=== PATIENT | male | born 1960 | race African-American/Black ===

== ENCOUNTER 2020-06-13 02:21 | Emergency (ER) | payer MEDICARE, MEDICAID, SELFPAY ==
--- NOTE | 2020-06-13 02:24 | ECG_ITS ---
Test Reason : CHEST PAIN Blood Pressure : / mmHG Vent. Rate : 068 BPM Atrial Rate : 068 BPM P-R Int : 168 ms QRS Dur : 096 ms QT Int : 408 ms P-R-T Axes : 074 060 056 degrees QTc Int : 433 ms Normal sinus rhythm Normal ECG Compare to previous EKG 22-Sep-2019 No significant changes seen Referred By: aCty Zarate Electronically Signed By:PRAVEENA HENDRICKS MD
[2020-06-13 02:31] VITALS: BP 155/96; BP 170/100; PULSE 78; PULSE 88; RESP 16; TEMP 36.8; O2SAT 97; O2SAT 98; BMI 24.1
--- NOTE | 2020-06-13 02:56 | XR_ITS ---
EXAMINATION: XR CHEST CLINICAL INFORMATION: Chest pain COMPARISON: 12/28/2018 TECHNIQUE: Frontal view of the chest was obtained. FINDINGS: The lungs are clear with no focal consolidation. No evidence of pneumothorax, pulmonary edema, or pleural effusions. The cardiomediastinal silhouette is unremarkable. No acute osseous findings. XR/XR chest 1V IMPRESSION: No acute cardiopulmonary findings.
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
[2020-06-13] MEDS: Lidocaine HCl Viscous 2 % 15 ML SOLUTION 10 ML MUCOUS MEM (03:21)
[2020-06-13] MEDS: 0.9 % Sodium Chloride 1,000 ML 1000 ML IV (03:21)
[2020-06-13] MEDS: Pantoprazole Sodium 40 MG/10 ML VIAL IVPUSH (03:21)
[2020-06-13] MEDS: Magnesium Hydrox/Alum Hydrox 30 ML ORAL.SUSP PO (03:21)
[2020-06-13] MEDS: ondansetron HCL 4 MG/2 ML VIAL IVPUSH (03:21)
[2020-06-13 03:57] LABS: Glucose Urine UA NEG (NEG); Leukocyte Esterase Urine NEG (NEG); Nitrite Urine NEG (NEG); PH 8.5 (5.0-8.0); Urine Blood NEG (NEG); Urine Ketones NEG (NEG); Urine Protein NEG (NEG-TRACE)
[2020-06-13 03:59] LABS: Appearance Urine CLEAR; Color Urine STRAW
[2020-06-13 04:00] VITALS: PULSE 69; RESP 18
[2020-06-13 04:16] LABS: MANUAL DIFF FLAG NO
[2020-06-13 04:17] LABS: Basophils Percent Auto 0.3 % (0-2); Eosinophils Percent Auto 0.1 % (0-4); Hematocrit 43.2 % (42-52); Hemoglobin 14.9 g/dl (14.0-18.0); Imm Gran Abs Auto 0.03 X10*3/uL (0.00-0.03); Imm Gran Pct Auto 0.3 % (0.0-0.4); Lymphocytes Absolute Auto 1.8 X10*3/uL (1.2-4.9); Lymphocytes Percent Auto 16.3 % (20-40); Mean Corpuscular HGB Conc 34.5 g/dl (31.0-36.0); Mean Corpuscular Hemoglobin 28.9 pg (27.0-33.0); Mean Corpuscular Volume 83.9 fL (80-98); Mean Platelet Volume 10.8 fL (9.4-12.4); Monocytes Absolute Auto 0.7 X10*3/uL (0.1-1.2); Neutrophils Absolute Auto 8.7 X10*3/uL (2.0-8.3); Platelet Count 214 X10*3/uL (160-400); Red Blood Count 5.15 X10*6/uL (4.60-5.80); Red Cell Distribution Width 13.7 % (11.0-16.0); White Blood Count 11.3 X10*3/uL (4.8-10.8)
[2020-06-13] MEDS: LORazepam 2 MG/ML VIAL 0.5 MG IVPUSH (04:18)
[2020-06-13 04:21] LABS: Amphetamine Screen Urine Not Detected (Not Detect); Barbiturates, Urine Not Detected (Not Detect); Benzodiazepines Screen Urine Not Detected (Not Detect); Cannabinoid Screen Urine POSITIVE (Not Detect); Cocaine Screen Urine POSITIVE (Not Detect); Opiate Screen Urine Not Detected (Not Detect); Phencyclidine Screen Urine Not Detected (Not Detect)
[2020-06-13 04:42] LABS: Ethanol < 10 mg/dL
[2020-06-13 04:46] LABS: Alanine Aminotransferase 16 U/L (0-40); Albumin Level 4.5 g/dL (3.5-5.0); Alkaline Phosphatase 92 U/L (39-117); Anion Gap 14 (12-20); Aspartate Amino Transferase 21 U/L (5-37); Bilirubin Total 0.6 mg/dL (0.0-1.0); Blood Urea Nitrogen 10 mg/dL (9-16); Calcium 8.8 mg/dL (8.4-10.2); Carbon Dioxide 25 mmol/L (22-29); Chloride 104 mmol/L (96-108); Creatinine Clr Calc Pharmacy 98.9; Estimated Glomerular Filt Rate > 60; Glucose Random 90 mg/dL (60-115); Lipase 33 U/L (8-78); Potassium 3.9 mmol/l (3.3-5.1); Sodium 139 mmol/L (135-145); Total Protein 6.8 g/dL (6.5-8.0)
[2020-06-13 04:48] LABS: Troponin-I High Sensitivity 16.3 ng/L (<3.5-35.0)
[2020-06-13 07:11] VITALS: PULSE 18
[2020-06-13 08:30] VITALS: BP 157/102; PULSE 62; RESP 14; O2SAT 98
--- NOTE | 2020-06-13 08:36 | PC.NURSE ---
PT MOVED TO 13H, PT SPOKE WITH CARE TEAM FOR DETOX. VSS.
[2020-06-13 08:59] LABS: Troponin-I High Sensitivity 20.5 ng/L (<3.5-35.0)
[2020-06-13 11:32] VITALS: RESP 16
--- NOTE | 2020-06-13 11:48 | MHC.CARE ---
Addiction Consult Service note: Patient presented to [facility] due to vomiting and stomach pain. Patient is reporting that he had two years sobriety and that he relapsed on alcohol after a friend came over with alcohol. Patient is a and is reporting numerous life stressors including PTSD and his ex- having 3 strokes and him not being able to see her because she is in [place]. Patient reports a desire to go to detox so that he can get back on the right track with his recovery. Patient was referred to [facility]. Patient has been accepted to go to their detox and then the [facility] when he is stable. Patient reports he would like to go home to get his belongings and return the following day for treatment. [facility] is aware and agreeable to this plan. Patient reports he is able to get transportation. Patient provided with the time and location and reports no additional questions at this time.
== END 2020-06-13 12:26 | disposition home or self-care (01) ==
PROVIDERS: Emergency Provider Student in an Organized Health Care Education/Training Program; PCP Family Medicine
DX: K21.9 Gastro-esophageal reflux disease without esophagitis (principal); F10.10 Alcohol abuse, uncomplicated
CPT/HCPCS: 36415; 71045; 80053; 80307; 80320; 81003; 83690; 84484; 85025; 93005; 96361; 96374; 96375; 99282; 99284; J2060; J2405

== ENCOUNTER 2021-06-23 14:18 | Inpatient (IN) | payer MEDICARE, MEDICAID, SELFPAY ==
--- NOTE | ~2021-06-23 | XR_ITS ---
EXAMINATION: XR CHEST CLINICAL INFORMATION: Chest pain COMPARISON: Chest radiographs 06/13/2020, 12/28/2018 TECHNIQUE: 2 views of the chest were obtained. FINDINGS: The lungs are clear. There is no pneumothorax, pleural reaction, airspace consolidation, or effusion. The costophrenic sulci are clear. The heart is normal in size. The hilar and mediastinal contours are normal. No visible acute bony abnormality. XR/XR chest 2V IMPRESSION: Unremarkable examination.
[2021-06-23 14:26] VITALS: BP 159/92; PULSE 58; RESP 16; TEMP 37; O2SAT 98; BMI 23.7
--- NOTE | 2021-06-23 15:07 | ED_ITS ---
HPI - General Adult General Chief complaint: General Medical <Jericho Sheehan MD - Last Filed: 06/23/21 17:01> Stated complaint: anxiety, multiple complaints <Jericho Sheehan MD - Last Filed: 06/23/21 17:01> Time Seen by Provider: 06/23/21 15:07 <Jericho Sheehan MD - Last Filed: 06/23/21 17:01> Source: patient <Jericho Sheehan MD - Last Filed: 06/23/21 17:01> History of Present Illness HPI narrative: Patient states he is complaining mostly of epigastric pain with burning and nausea and vomiting. No p.o. solids for the past 3 days. Some p.o. liquids. He states this typically happens when he gets very anxious or upset. He states he has been feeling upset for the past several days but does not know why but thinks it may be because his 6 months ago. He has a history of PTSD depression and anxiety. He has a history of suicidal ideation with attempt in the distant past but states he has no suicidal or homicidal ideation. He has a history of polysubstance use disorder in remission for the last 5-6 years. He denies any drug or alcohol use other than marijuana once or twice a week. No tobacco use He states he feels very anxious and angry but does not feel he is at risk to hurt himself or others. No specific recent precipitating factors No diarrhea or constipation Pain in his abdomen is in his epigastrium and radiates up into his chest. He has a history of congestive heart disease without history of myocardial infarction that he knows of <Jericho Sheehan MD - Last Filed: 06/23/21 17:01> Related Data Home medications: Home Medications Medication Instructions Recorded Confirmed Vivitrol 06/13/20 Previous Rx's Medication Instructions Recorded famotidine 20 mg tablet (Pepcid) 20 mg PO BID #20 tab 06/13/20 ondansetron HCl 4 mg tablet 4 mg PO Q6H PRN #8 tab 06/13/20 (Zofran) <Jericho Sheehan MD - Last Filed: 06/23/21 17:01> Allergies/adverse reactions: Allergies Allergy/AdvReac Type Severity Reaction Status Date / Time omeprazole [OMEPRAZOLE] Allergy Unknown Nausea and Verified 06/13/20 02:36 Vomiting aspirin AdvReac Nausea and Verified 06/13/20 02:36 Vomiting ibuprofen AdvReac Nausea and Verified 06/13/20 02:36 Vomiting pantoprazole AdvReac Nausea and Verified 06/13/20 02:36 Vomiting <Jericho Sheehan MD - Last Filed: 06/23/21 17:01> Review of Systems Constitutional: Comments: No fevers or chills <Jericho Sheehan MD - Last Filed: 06/23/21 17:01> Cardiovascular: Comments: Chest pain described as burning more right-sided <Jericho Sheehan MD - Last Filed: 06/23/21 17:01> Respiratory: Comments: No cough or dyspnea <Jericho Sheehan MD - Last Filed: 06/23/21 17:01> Gastrointestinal: Comments: Epigastric pain, burning, vomiting without diarrhea <Jericho Sheehan MD - Last Filed: 06/23/21 17:01> Musculoskeletal: Comments: No pedal edema or calf tenderness <Jericho Sheehan MD - Last Filed: 06/23/21 17:01> Integumentary/Breasts: Comments: No rash <Jericho Sheehan MD - Last Filed: 06/23/21 17:01> Neurologic: Comments: No weakness numbness or paresthesias <Jericho Sheehan MD - Last Filed: 06/23/21 17:01> Psychiatric: Comments: Depression and anxiety without suicidal or homicidal ideation <Jericho Sheehan MD - Last Filed: 06/23/21 17:01> PMFSH Past Medical History Medical History: Medical History Anxiety ETOH abuse Gastritis PTSD (post-traumatic stress disorder) <Jericho Sheehan MD - Last Filed: 06/23/21 17:01> Social History Social History: Social History Alcohol intake: current Advance Directives: No Advance Directives Information Provided: No Guardian: No <Jericho Sheehan MD - Last Filed: 06/23/21 17:01> Physical Exam Vital Signs: Vital Signs: Last Vital Signs Temp 99.1 F 06/24/21 07:33 Pulse 53 06/24/21 07:33 Resp 15 06/24/21 07:33 BP 161/92 H 06/24/21 07:33 Pulse Ox 97 06/24/21 07:33 Body Mass Index 23.7 <Jericho Sheehan MD - Last Filed: 06/23/21 17:01> Vital Signs: Last Vital Signs Temp 99.1 F 06/24/21 07:33 Pulse 53 06/24/21 07:33 Resp 15 06/24/21 07:33 BP 161/92 H 06/24/21 07:33 Pulse Ox 97 06/24/21 07:33 Body Mass Index 23.7 <SHERRELL Alcantar - Last Filed: 06/24/21 14:38> Const: Other: Awake and alert no acute distress <Jericho Sheehan MD - Last Filed: 06/23/21 17:01> Chest: Other: Chest nontender to palpation <Jericho Sheehan MD - Last Filed: 06/23/21 17:01> Resp: Other: Clear and equal bilaterally <Jericho Sheehan MD - Last Filed: 06/23/21 17:01> Cardio: Other: Regular rate rhythm no murmurs rubs or gallops <Jericho Sheehan MD - Last Filed: 06/23/21 17:01> GI: Other: Tender epigastrium without guarding or rebound. No right upper quadrant tenderness or lower abdominal tenderness. Abdomen is soft and nondistended <Jericho Sheehan MD - Last Filed: 06/23/21 17:01> Skin: Other: Warm pink and dry <Jericho Sheehan MD - Last Filed: 06/23/21 17:01> Neuro: Other: No neurologic deficits <Jericho Sheehan MD - Last Filed: 06/23/21 17:01> Course Course Course Narrative: Epigastric pain Gastritis Pancreatitis Dehydration Anxiety Depression No evidence of suicidal or homicidal ideation Posttraumatic stress disorder IV fluids IV Zofran IV Protonix GI cocktail 4:57 p.m.. EKG normal sinus rhythm without ischemic changes. Lab work including troponin is negative. Discussion with crisis team reveals that he apparently had a list of people that he wants to kill postdated his house. He will therefore be a Section [address] and is anticipated hospitalization at the [facility] <Jericho Sheehan MD - Last Filed: 06/23/21 17:01> Reevaluation(s) Reevaluation #1: Physician observation continued. Vital signs stable, labs reviewed. No complaints overnight. Patient going to today <SHERRELL Alcantar - Last Filed: 06/24/21 14:38> Time: 14:38 <SHERRELL Alcantar - Last Filed: 06/24/21 14:38> Medical Decision Making Lab Data Result diagrams: : 06/23/21 15:58 06/23/21 15:58 <Jericho Sheehan MD - Last Filed: 06/23/21 17:01> Labs: Lab Results 06/23/21 06/23/21 06/23/21 Range/Units 15:58 15:58 15:58 WBC 8.1 (4.8-10.8) X10*3/uL RBC 5.53 (4.60-5.80) X10*6/uL Hgb 16.2 (14.0-18.0) g/dl Hct 46.8 (42.0-52.0) % MCV 84.6 (80.0-98.0) fL MCH 29.3 (27.0-33.0) pg MCHC 34.6 (31.0-36.0) g/dl RDW 13.8 (11.0-16.0) % Plt Count 245 (160-400) X10*3/uL MPV 10.6 (9.4-12.4) fL Immature Gran % (Auto) 0.4 (0.0-0.4) % Neut % (Auto) 61.1 (45-73) % Lymph % (Auto) 30.4 (20-40) % [place] % (Auto) 6.3 (2-11) % Eos % (Auto) 1.2 (0-4) % Baso % (Auto) 0.6 (0-2) % Lymph # (Auto) 2.5 (1.2-4.9) X10*3/uL [place] # (Auto) 0.5 (0.1-1.2) X10*3/uL Eos # (Auto) 0.1 (0.0-0.4) X10*3/uL Baso # (Auto) 0.1 (0.0-0.2) X10*3/uL Abs Immat Gran (auto) 0.03 (0.00-0.03) X10*3/uL Absolute Neuts (auto) 4.91 (2.0-8.3) x10*3/uL Absolute Nucleated RBC 0.000 (0.0-0.012) X10*3/uL Nucleated RBC % (auto) 0.0 (0.0-0.2) /100WBC Sodium 141 (135-145) mmol/L Potassium 4.3 (3.3-5.1) mmol/L Chloride 105 (96-108) mmol/L Carbon Dioxide 29 (22-29) mmol/L Anion Gap 11 L (12-20) BUN 11 (9-16) mg/dL Creatinine 1.02 (0.5-1.4) mg/dL Estim Creat Clear Calc 90.6 Estimated GFR > 60 Random Glucose 86 (60-115) mg/dL Calcium 9.6 D (8.4-10.2) mg/dL Total Bilirubin 0.6 (0.0-1.0) mg/dL AST 22 (5-37) U/L ALT 18 (0-40) U/L Alkaline Phosphatase 97 (39-117) U/L Ammonia (13-55) umol/L Troponin I High Sens 6.9 (<3.5-35.0) ng/L B-Natriuretic Peptide (<100) pg/mL Total Protein 7.4 (6.5-8.0) g/dL Albumin 4.8 (3.5-5.0) g/dL Lipase 33 (8-78) U/L TSH 1.02 (0.32-4.0) uIU/mL Urine Color Urine Appearance Urine pH (5.0-8.0) Ur Specific [place] (1.005-1.025) Urine Protein (NEG-TRACE) MG/DL Urine Glucose (UA) (NEG) MG/DL Urine Ketones (NEG) MG/DL Urine Blood (NEG) Urine Nitrite (NEG) Ur Leukocyte Esterase (NEG) Urine Opiates Screen (Not Detect) Urine Fentanyl Screen (Not Detect) Ur Barbiturates Screen (Not Detect) Ur Phencyclidine Scrn (Not Detect) Ur Amphetamines Screen (Not Detect) U Benzodiazepines Scrn (Not Detect) Urine Cocaine Screen (Not Detect) U Marijuana (THC) Screen (Not Detect) Ethyl Alcohol mg/dL COVID-19 (SALAZAR) (Negative) COVID-19 Clin Com 06/23/21 06/23/21 06/23/21 Range/Units 15:58 15:58 15:58 WBC (4.8-10.8) X10*3/uL RBC (4.60-5.80) X10*6/uL Hgb (14.0-18.0) g/dl Hct (42.0-52.0) % MCV (80.0-98.0) fL MCH (27.0-33.0) pg MCHC (31.0-36.0) g/dl RDW (11.0-16.0) % Plt Count (160-400) X10*3/uL MPV (9.4-12.4) fL Immature Gran % (Auto) (0.0-0.4) % Neut % (Auto) (45-73) % Lymph % (Auto) (20-40) % [place] % (Auto) (2-11) % Eos % (Auto) (0-4) % Baso % (Auto) (0-2) % Lymph # (Auto) (1.2-4.9) X10*3/uL [place] # (Auto) (0.1-1.2) X10*3/uL Eos # (Auto) (0.0-0.4) X10*3/uL Baso # (Auto) (0.0-0.2) X10*3/uL Abs Immat Gran (auto) (0.00-0.03) X10*3/uL Absolute Neuts (auto) (2.0-8.3) x10*3/uL Absolute Nucleated RBC (0.0-0.012) X10*3/uL Nucleated RBC % (auto) (0.0-0.2) /100WBC Sodium (135-145) mmol/L Potassium (3.3-5.1) mmol/L Chloride (96-108) mmol/L Carbon Dioxide (22-29) mmol/L Anion Gap (12-20) BUN (9-16) mg/dL Creatinine (0.5-1.4) mg/dL Estim Creat Clear Calc Estimated GFR Random Glucose (60-115) mg/dL Calcium (8.4-10.2) mg/dL Total Bilirubin (0.0-1.0) mg/dL AST (5-37) U/L ALT (0-40) U/L Alkaline Phosphatase (39-117) U/L Ammonia 22 (13-55) umol/L Troponin I High Sens (<3.5-35.0) ng/L B-Natriuretic Peptide 124 H (<100) pg/mL Total Protein (6.5-8.0) g/dL Albumin (3.5-5.0) g/dL Lipase (8-78) U/L TSH (0.32-4.0) uIU/mL Urine Color Urine Appearance Urine pH (5.0-8.0) Ur Specific [place] (1.005-1.025) Urine Protein (NEG-TRACE) MG/DL Urine Glucose (UA) (NEG) MG/DL Urine Ketones (NEG) MG/DL Urine Blood (NEG) Urine Nitrite (NEG) Ur Leukocyte Esterase (NEG) Urine Opiates Screen (Not Detect) Urine Fentanyl Screen (Not Detect) Ur Barbiturates Screen (Not Detect) Ur Phencyclidine Scrn (Not Detect) Ur Amphetamines Screen (Not Detect) U Benzodiazepines Scrn (Not Detect) Urine Cocaine Screen (Not Detect) U Marijuana (THC) Screen (Not Detect) Ethyl Alcohol mg/dL COVID-19 (SALAZAR) Negative (Negative) COVID-19 Clin Com See Note 06/23/21 06/23/21 06/23/21 Range/Units 16:48 18:08 18:11 WBC (4.8-10.8) X10*3/uL RBC (4.60-5.80) X10*6/uL Hgb (14.0-18.0) g/dl Hct (42.0-52.0) % MCV (80.0-98.0) fL MCH (27.0-33.0) pg MCHC (31.0-36.0) g/dl RDW (11.0-16.0) % Plt Count (160-400) X10*3/uL MPV (9.4-12.4) fL Immature Gran % (Auto) (0.0-0.4) % Neut % (Auto) (45-73) % Lymph % (Auto) (20-40) % [place] % (Auto) (2-11) % Eos % (Auto) (0-4) % Baso % (Auto) (0-2) % Lymph # (Auto) (1.2-4.9) X10*3/uL [place] # (Auto) (0.1-1.2) X10*3/uL Eos # (Auto) (0.0-0.4) X10*3/uL Baso # (Auto) (0.0-0.2) X10*3/uL Abs Immat Gran (auto) (0.00-0.03) X10*3/uL Absolute Neuts (auto) (2.0-8.3) x10*3/uL Absolute Nucleated RBC (0.0-0.012) X10*3/uL Nucleated RBC % (auto) (0.0-0.2) /100WBC Sodium (135-145) mmol/L Potassium (3.3-5.1) mmol/L Chloride (96-108) mmol/L Carbon Dioxide (22-29) mmol/L Anion Gap (12-20) BUN (9-16) mg/dL Creatinine (0.5-1.4) mg/dL Estim Creat Clear Calc Estimated GFR Random Glucose (60-115) mg/dL Calcium (8.4-10.2) mg/dL Total Bilirubin (0.0-1.0) mg/dL AST (5-37) U/L ALT (0-40) U/L Alkaline Phosphatase (39-117) U/L Ammonia (13-55) umol/L Troponin I High Sens (<3.5-35.0) ng/L B-Natriuretic Peptide (<100) pg/mL Total Protein (6.5-8.0) g/dL Albumin (3.5-5.0) g/dL Lipase (8-78) U/L TSH (0.32-4.0) uIU/mL Urine Color YELLOW Urine Appearance CLEAR Urine pH 6.0 (5.0-8.0) Ur Specific [place] <= 1.005 (1.005-1.025) Urine Protein NEG (NEG-TRACE) MG/DL Urine Glucose (UA) NEG (NEG) MG/DL Urine Ketones NEG (NEG) MG/DL Urine Blood NEG (NEG) Urine Nitrite NEG (NEG) Ur Leukocyte Esterase NEG (NEG) Urine Opiates Screen Not Detected (Not Detect) Urine Fentanyl Screen Not Detected (Not Detect) Ur Barbiturates Screen Not Detected (Not Detect) Ur Phencyclidine Scrn Not Detected (Not Detect) Ur Amphetamines Screen Not Detected (Not Detect) U Benzodiazepines Scrn Not Detected (Not Detect) Urine Cocaine Screen POSITIVE H (Not Detect) U Marijuana (THC) Screen POSITIVE H (Not Detect) Ethyl Alcohol < 10 mg/dL COVID-19 (SALAZAR) (Negative) COVID-19 Clin Com <Jericho Sheehan MD - Last Filed: 06/23/21 17:01> Lab Results 06/23/21 06/23/21 06/23/21 Range/Units 15:58 15:58 15:58 WBC 8.1 (4.8-10.8) X10*3/uL RBC 5.53 (4.60-5.80) X10*6/uL Hgb 16.2 (14.0-18.0) g/dl Hct 46.8 (42.0-52.0) % MCV 84.6 (80.0-98.0) fL MCH 29.3 (27.0-33.0) pg MCHC 34.6 (31.0-36.0) g/dl RDW 13.8 (11.0-16.0) % Plt Count 245 (160-400) X10*3/uL MPV 10.6 (9.4-12.4) fL Immature Gran % (Auto) 0.4 (0.0-0.4) % Neut % (Auto) 61.1 (45-73) % Lymph % (Auto) 30.4 (20-40) % [place] % (Auto) 6.3 (2-11) % Eos % (Auto) 1.2 (0-4) % Baso % (Auto) 0.6 (0-2) % Lymph # (Auto) 2.5 (1.2-4.9) X10*3/uL [place] # (Auto) 0.5 (0.1-1.2) X10*3/uL Eos # (Auto) 0.1 (0.0-0.4) X10*3/uL Baso # (Auto) 0.1 (0.0-0.2) X10*3/uL Abs Immat Gran (auto) 0.03 (0.00-0.03) X10*3/uL Absolute Neuts (auto) 4.91 (2.0-8.3) x10*3/uL Absolute Nucleated RBC 0.000 (0.0-0.012) X10*3/uL Nucleated RBC % (auto) 0.0 (0.0-0.2) /100WBC Sodium 141 (135-145) mmol/L Potassium 4.3 (3.3-5.1) mmol/L Chloride 105 (96-108) mmol/L Carbon Dioxide 29 (22-29) mmol/L Anion Gap 11 L (12-20) BUN 11 (9-16) mg/dL Creatinine 1.02 (0.5-1.4) mg/dL Estim Creat Clear Calc 90.6 Estimated GFR > 60 Random Glucose 86 (60-115) mg/dL Calcium 9.6 D (8.4-10.2) mg/dL Total Bilirubin 0.6 (0.0-1.0) mg/dL AST 22 (5-37) U/L ALT 18 (0-40) U/L Alkaline Phosphatase 97 (39-117) U/L Ammonia (13-55) umol/L Troponin I High Sens 6.9 (<3.5-35.0) ng/L B-Natriuretic Peptide (<100) pg/mL Total Protein 7.4 (6.5-8.0) g/dL Albumin 4.8 (3.5-5.0) g/dL Lipase 33 (8-78) U/L TSH 1.02 (0.32-4.0) uIU/mL Urine Color Urine Appearance Urine pH (5.0-8.0) Ur Specific [place] (1.005-1.025) Urine Protein (NEG-TRACE) MG/DL Urine Glucose (UA) (NEG) MG/DL Urine Ketones (NEG) MG/DL Urine Blood (NEG) Urine Nitrite (NEG) Ur Leukocyte Esterase (NEG) Urine Opiates Screen (Not Detect) Urine Fentanyl Screen (Not Detect) Ur Barbiturates Screen (Not Detect) Ur Phencyclidine Scrn (Not Detect) Ur Amphetamines Screen (Not Detect) U Benzodiazepines Scrn (Not Detect) Urine Cocaine Screen (Not Detect) U Marijuana (THC) Screen (Not Detect) Ethyl Alcohol mg/dL COVID-19 (SALAZAR) (Negative) COVID-19 Clin Com 06/23/21 06/23/21 06/23/21 Range/Units 15:58 15:58 15:58 WBC (4.8-10.8) X10*3/uL RBC (4.60-5.80) X10*6/uL Hgb (14.0-18.0) g/dl Hct (42.0-52.0) % MCV (80.0-98.0) fL MCH (27.0-33.0) pg MCHC (31.0-36.0) g/dl RDW (11.0-16.0) % Plt Count (160-400) X10*3/uL MPV (9.4-12.4) fL Immature Gran % (Auto) (0.0-0.4) % Neut % (Auto) (45-73) % Lymph % (Auto) (20-40) % [place] % (Auto) (2-11) % Eos % (Auto) (0-4) % Baso % (Auto) (0-2) % Lymph # (Auto) (1.2-4.9) X10*3/uL [place] # (Auto) (0.1-1.2) X10*3/uL Eos # (Auto) (0.0-0.4) X10*3/uL Baso # (Auto) (0.0-0.2) X10*3/uL Abs Immat Gran (auto) (0.00-0.03) X10*3/uL Absolute Neuts (auto) (2.0-8.3) x10*3/uL Absolute Nucleated RBC (0.0-0.012) X10*3/uL Nucleated RBC % (auto) (0.0-0.2) /100WBC Sodium (135-145) mmol/L Potassium (3.3-5.1) mmol/L Chloride (96-108) mmol/L Carbon Dioxide (22-29) mmol/L Anion Gap (12-20) BUN (9-16) mg/dL Creatinine (0.5-1.4) mg/dL Estim Creat Clear Calc Estimated GFR Random Glucose (60-115) mg/dL Calcium (8.4-10.2) mg/dL Total Bilirubin (0.0-1.0) mg/dL AST (5-37) U/L ALT (0-40) U/L Alkaline Phosphatase (39-117) U/L Ammonia 22 (13-55) umol/L Troponin I High Sens (<3.5-35.0) ng/L B-Natriuretic Peptide 124 H (<100) pg/mL Total Protein (6.5-8.0) g/dL Albumin (3.5-5.0) g/dL Lipase (8-78) U/L TSH (0.32-4.0) uIU/mL Urine Color Urine Appearance Urine pH (5.0-8.0) Ur Specific [place] (1.005-1.025) Urine Protein (NEG-TRACE) MG/DL Urine Glucose (UA) (NEG) MG/DL Urine Ketones (NEG) MG/DL Urine Blood (NEG) Urine Nitrite (NEG) Ur Leukocyte Esterase (NEG) Urine Opiates Screen (Not Detect) Urine Fentanyl Screen (Not Detect) Ur Barbiturates Screen (Not Detect) Ur Phencyclidine Scrn (Not Detect) Ur Amphetamines Screen (Not Detect) U Benzodiazepines Scrn (Not Detect) Urine Cocaine Screen (Not Detect) U Marijuana (THC) Screen (Not Detect) Ethyl Alcohol mg/dL COVID-19 (SALAZAR) Negative (Negative) COVID-19 Clin Com See Note 06/23/21 06/23/21 06/23/21 Range/Units 16:48 18:08 18:11 WBC (4.8-10.8) X10*3/uL RBC (4.60-5.80) X10*6/uL Hgb (14.0-18.0) g/dl Hct (42.0-52.0) % MCV (80.0-98.0) fL MCH (27.0-33.0) pg MCHC (31.0-36.0) g/dl RDW (11.0-16.0) % Plt Count (160-400) X10*3/uL MPV (9.4-12.4) fL Immature Gran % (Auto) (0.0-0.4) % Neut % (Auto) (45-73) % Lymph % (Auto) (20-40) % [place] % (Auto) (2-11) % Eos % (Auto) (0-4) % Baso % (Auto) (0-2) % Lymph # (Auto) (1.2-4.9) X10*3/uL [place] # (Auto) (0.1-1.2) X10*3/uL Eos # (Auto) (0.0-0.4) X10*3/uL Baso # (Auto) (0.0-0.2) X10*3/uL Abs Immat Gran (auto) (0.00-0.03) X10*3/uL Absolute Neuts (auto) (2.0-8.3) x10*3/uL Absolute Nucleated RBC (0.0-0.012) X10*3/uL Nucleated RBC % (auto) (0.0-0.2) /100WBC Sodium (135-145) mmol/L Potassium (3.3-5.1) mmol/L Chloride (96-108) mmol/L Carbon Dioxide (22-29) mmol/L Anion Gap (12-20) BUN (9-16) mg/dL Creatinine (0.5-1.4) mg/dL Estim Creat Clear Calc Estimated GFR Random Glucose (60-115) mg/dL Calcium (8.4-10.2) mg/dL Total Bilirubin (0.0-1.0) mg/dL AST (5-37) U/L ALT (0-40) U/L Alkaline Phosphatase (39-117) U/L Ammonia (13-55) umol/L Troponin I High Sens (<3.5-35.0) ng/L B-Natriuretic Peptide (<100) pg/mL Total Protein (6.5-8.0) g/dL Albumin (3.5-5.0) g/dL Lipase (8-78) U/L TSH (0.32-4.0) uIU/mL Urine Color YELLOW Urine Appearance CLEAR Urine pH 6.0 (5.0-8.0) Ur Specific [place] <= 1.005 (1.005-1.025) Urine Protein NEG (NEG-TRACE) MG/DL Urine Glucose (UA) NEG (NEG) MG/DL Urine Ketones NEG (NEG) MG/DL Urine Blood NEG (NEG) Urine Nitrite NEG (NEG) Ur Leukocyte Esterase NEG (NEG) Urine Opiates Screen Not Detected (Not Detect) Urine Fentanyl Screen Not Detected (Not Detect) Ur Barbiturates Screen Not Detected (Not Detect) Ur Phencyclidine Scrn Not Detected (Not Detect) Ur Amphetamines Screen Not Detected (Not Detect) U Benzodiazepines Scrn Not Detected (Not Detect) Urine Cocaine Screen POSITIVE H (Not Detect) U Marijuana (THC) Screen POSITIVE H (Not Detect) Ethyl Alcohol < 10 mg/dL COVID-19 (SALAZAR) (Negative) COVID-19 Clin Com <SHERRELL Alcantar - Last Filed: 06/24/21 14:38> Discharge Plan Discharge Clinical Impression: Acute anxiety, Homicidal ideation Gastritis Qualifiers: Gastritis type: unspecified gastritis Chronicity: acute Gastritis bleeding: without bleeding Qualified Code(s): K29.00 - Acute gastritis without bleeding <Jericho Sheehan MD - Last Filed: 06/23/21 17:01> Patient Disposition: Xfer Psychiatric Hosp <Jericho Sheehan MD - Last Filed: 06/23/21 17:01> Prescriptions: No Action Vivitrol RF: 0 famotidine [Pepcid] 20 mg tablet 20 mg PO BID Qty: 20 RF: 0 ondansetron HCl [Zofran] 4 mg tablet 4 mg PO Q6H PRN (Reason: nause) Qty: 8 RF: 0 <Jericho Sheehan MD - Last Filed: 06/23/21 17:01>
--- NOTE | 2021-06-23 15:30 | ECG_ITS ---
Test Reason : Chest pain Blood Pressure : / mmHG Vent. Rate : 049 BPM Atrial Rate : 049 BPM P-R Int : 182 ms QRS Dur : 100 ms QT Int : 444 ms P-R-T Axes : 076 045 041 degrees QTc Int : 401 ms Sinus bradycardia Minimal voltage criteria for LVH, may be normal variant ( Sokolow-Nuno ) Borderline ECG Heart rate has decreased Referred By: Jericho Sheehan Electronically Signed By:PRAVEENA HENDRICKS MD
[2021-06-23 16:11] LABS: MANUAL DIFF FLAG NO
[2021-06-23 16:13] LABS: Basophils Absolute Auto 0.1 X10*3/uL (0.0-0.2); Basophils Percent Auto 0.6 % (0-2); Eosinophils Absolute Auto 0.1 X10*3/uL (0.0-0.4); Eosinophils Percent Auto 1.2 % (0-4); Hematocrit 46.8 % (42.0-52.0); Hemoglobin 16.2 g/dl (14.0-18.0); Imm Gran Abs Auto 0.03 X10*3/uL (0.00-0.03); Imm Gran Pct Auto 0.4 % (0.0-0.4); Lymphocytes Absolute Auto 2.5 X10*3/uL (1.2-4.9); Lymphocytes Percent Auto 30.4 % (20-40); Mean Corpuscular HGB Conc 34.6 g/dl (31.0-36.0); Mean Corpuscular Hemoglobin 29.3 pg (27.0-33.0); Mean Corpuscular Volume 84.6 fL (80.0-98.0); Mean Platelet Volume 10.6 fL (9.4-12.4); Monocytes Absolute Auto 0.5 X10*3/uL (0.1-1.2); Monocytes Percent Auto 6.3 % (2-11); Neutrophils Absolute Auto 4.91 x10*3/uL (2.0-8.3); Neutrophils Percent Auto 61.1 % (45-73); Platelet Count 245 X10*3/uL (160-400); Red Blood Count 5.53 X10*6/uL (4.60-5.80); Red Cell Distribution Width 13.8 % (11.0-16.0); White Blood Count 8.1 X10*3/uL (4.8-10.8)
[2021-06-23 16:21] LABS: Ammonia 22 umol/L (13-55)
[2021-06-23 16:28] LABS: COVID-19 Test Negative (Negative)
[2021-06-23 16:29] LABS: Alanine Aminotransferase 18 U/L (0-40); Albumin Level 4.8 g/dL (3.5-5.0); Alkaline Phosphatase 97 U/L (39-117); Anion Gap 11 (12-20); Aspartate Amino Transferase 22 U/L (5-37); Bilirubin Total 0.6 mg/dL (0.0-1.0); Blood Urea Nitrogen 11 mg/dL (9-16); Calcium 9.6 mg/dL (8.4-10.2); Carbon Dioxide 29 mmol/L (22-29); Chloride 105 mmol/L (96-108); Creatinine Clr Calc Pharmacy 90.6; Estimated Glomerular Filt Rate > 60; Glucose Random 86 mg/dL (60-115); Lipase 33 U/L (8-78); Potassium 4.3 mmol/L (3.3-5.1); Sodium 141 mmol/L (135-145); Total Protein 7.4 g/dL (6.5-8.0)
[2021-06-23 16:35] LABS: B Type Natriuretic Peptide 124 pg/mL (<100); Troponin-I High Sensitivity 6.9 ng/L (<3.5-35.0)
[2021-06-23] MEDS: Magnesium Hydrox/Alum Hydrox 30 ML ORAL.SUSP PO (16:43)
[2021-06-23] MEDS: Pantoprazole Sodium 40 MG/10 ML VIAL IVPUSH (16:43)
[2021-06-23] MEDS: ondansetron HCL 4 MG/2 ML VIAL IVPUSH (16:43)
[2021-06-23] MEDS: Lidocaine HCl Viscous 2 % 15 ML SOLUTION PO (16:43)
[2021-06-23] MEDS: 0.9 % Sodium Chloride 500 ML IV (16:43)
[2021-06-23 16:54] LABS: Appearance Urine CLEAR; Color Urine YELLOW; Glucose Urine UA NEG (NEG); Leukocyte Esterase Urine NEG (NEG); Nitrite Urine NEG (NEG); Specific Gravity - Urine <= 1.005 (1.005-1.025); Urine Blood NEG (NEG); Urine Ketones NEG (NEG); Urine Protein NEG (NEG-TRACE)
[2021-06-23 18:30] LABS: Amphetamine Screen Urine Not Detected (Not Detect); Barbiturates, Urine Not Detected (Not Detect); Benzodiazepines Screen Urine Not Detected (Not Detect); Cannabinoid Screen Urine POSITIVE (Not Detect); Cocaine Screen Urine POSITIVE (Not Detect); Fentanyl, urine Not Detected (Not Detect); Opiate Screen Urine Not Detected (Not Detect); Phencyclidine Screen Urine Not Detected (Not Detect)
--- NOTE | 2021-06-23 18:38 | PC.NURSE ---
patient expressed reluctance to come to [facility] it was explained to [facility] ED beds may be needed for other more acute patients
[2021-06-23 18:39] LABS: Ethanol < 10 mg/dL
[2021-06-23 18:43] LABS: TSH reflex Free T4 1.02 uIU/mL (0.32-4.0)
--- NOTE | 2021-06-23 20:07 | MHC.CARE ---
CARE team contacted by pt's outpatient therapist at the [facility] re: a note that was found by his home care worker that listed the names and addresses of people that he wants to kill. This financial writer spoke with the home care agency's senior clinical data manager and with the social services director at the [facility]. Assessment completed, disposition is for inpt psychiatric admission. Plan was initially for him to be transferred to the [facility], however pt is not agreeable to admission there. He has non-[facility] medical insurance coverage and is able to be admitted for treatment elsewhere.
[2021-06-24 00:24] VITALS: BP 113/60; PULSE 60; RESP 16; TEMP 36.7; O2SAT 95
--- NOTE | 2021-06-24 05:46 | PC.NURSE ---
Patient slept the through the night, out of bed x 2 for bathroom use and back, VSS, no distress observed/reported, compliant with medication, behavior appropriate, appetite good, gait steady and secured with walker, patient's disposition is section 12 inpatient bed search per care team, will continue to monitor
--- NOTE | 2021-06-24 07:12 | PC.NURSE ---
patient appears to remain asleep at present with even unlabored breaths patient appears in no distress
[2021-06-24 07:33] VITALS: BP 161/92; PULSE 53; RESP 15; TEMP 37.3; O2SAT 97
--- NOTE | 2021-06-24 08:01 | PC.NURSE ---
patient made two loud noises in the last ten minutes yelling at the tv lights dimmed in room, seemingly no precipitant, t/w inquired and approached patient who explained.
--- NOTE | 2021-06-24 08:59 | MHC.CM.ED ---
Patient is active with [facility]. Their telephone number is [phone]. Mary is aware of admission. Continue to monitor for d/c needs.
--- NOTE | 2021-06-24 10:48 | PC.NURSE ---
client requested patient advocate, called supervisor [employer]intering [employer] and conveyed message
--- NOTE | 2021-06-24 10:57 | MHC.CARE ---
CARE Team to [facility], patient asked to speak with staff regarding his disposition. He was angry and loudly expressing his opinion that he does not need, ?To be in a psych mancilla,? stated he had a panic attack and was too sick to hold medication down so came to the hospital for medical treatment, said he has been inpatient before and does not need to be here. ?Feels he was misled and not informed what was happening. Patient reported that he frequently gets stomach pain and became stressed after speaking with his sister yesterday. He demanded to be discharged, said he has to pay his rent, has appointments and things to do, ?I am not going to hurt myself or anyone else.? 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
[2021-06-24] MEDS: LORazepam 1 MG TABLET 2 MG PO (11:25)
[2021-06-24] MEDS: Ondansetron ODT 4 MG TAB.RAPDIS TRANSLINGU (11:25)
--- NOTE | 2021-06-24 11:34 | PC.NURSE ---
pt irritable, yelling, telling t/w that no one is giving him his medications. Ni WYNNE ordered 2mg Ativan. pt yelling at t/w as t/w attempted to offer the medications. pt continues to ask for a pt advocate to come speak with him.
--- NOTE | 2021-06-24 13:32 | PC.NURSE ---
RN to RN report given to M5
[2021-06-24 16:50] VITALS: BP 157/88; PULSE 58; RESP 20; TEMP 36.4; O2SAT 98
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
--- NOTE | 2021-06-24 21:35 | PC.NURSE ---
Pt came to unit with white glasses and dentures in his hand that Pt did not give to staff to handle. Pt later reported that staff broke his glasses.
[2021-06-24] MEDS: QUEtiapine Fumarate 100 MG TABLET PO (22:06)
[2021-06-24] MEDS: Divalproex Sodium ER 500 MG TAB.ER.24H PO (22:06)
--- NOTE | 2021-06-24 22:10 | PC.NURSE ---
Pt report that he has a cardiology appointment on 07/01/21 for an EGO.
[2021-06-24] MEDS: Cyclobenzaprine HCl 5 MG TABLET PO (22:52)
[2021-06-25] MEDS: QUEtiapine Fumarate 50 MG TABLET PO ×3 (09:24→21:05)
[2021-06-25] MEDS: Divalproex Sodium ER 250 MG TAB.ER.24H PO (09:24)
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
[2021-06-25] MEDS: Divalproex Sodium ER 500 MG TAB.ER.24H PO (21:04)
[2021-06-25] MEDS: traZODone HCL 50 MG TABLET PO (21:05)
[2021-06-25] MEDS: QUEtiapine Fumarate 50 MG TABLET 150 MG PO (21:05)
[2021-06-26 06:00] VITALS: BP 135/80; PULSE 66; RESP 18; TEMP 36.6; O2SAT 99
--- NOTE | 2021-06-26 09:08 | PM.PSYDC ---
DS: Providers Provider Date of Service: 06/26/21 Date of admission: 06/24/21 14:57 Date of discharge: 06/26/21 Primary care physician: Raven Gilbert MD Attending physician on admission: Ari Ryan Attending physician on discharge: Ari Ryan DS: Diagnosis Discharge Diagnosis (1) PTSD (post-traumatic stress disorder): Status: Chronic (2) Gastritis: Status: Resolved (3) MDD (major depressive disorder), recurrent episode, moderate: Status: Chronic DS: Medications Discharge Medications Home Medications: Home Medications Medication Instructions Recorded Confirmed Vivitrol 06/13/20 Previous Rx's Medication Instructions Recorded famotidine 20 mg tablet (Pepcid) 20 mg PO BID #20 tab 06/13/20 divalproex 250 mg tablet,extended 250 mg PO BEDTIME #0 tab 06/26/21 release 24 hr divalproex 500 mg tablet,extended 500 mg PO DAILY #0 tab 06/26/21 release 24 hr ondansetron HCl 4 mg tablet 4 mg PO Q6H PRN 30 Days #10 tab 06/26/21 (Zofran) quetiapine 50 mg tablet 50 mg PO TID #0 tab 06/26/21 quetiapine 50 mg tablet 150 mg PO BEDTIME #0 tab 06/26/21 trazodone 50 mg tablet 50 mg PO BEDTIME #0 tab 06/26/21 Mental Status Exam Mental Status Exam Narrative: Pt is alert and oriented; behavior is cooperative, friendly and calm; patient is not in distress; dressed in casual attire with adequate hygiene; mood is described as good and affect congruent; eye contact appropriate; Speech is normal rate, volume and prosody and not pressured; no psychomotor agitation/retardation present; thought process is organized and goal directed; Thought content is on discharge and tx; otherwise pertinent to relevant topics and without any delusional content, paranoid ideations or grandiosity; denies any SI/HI. There is no evidence of perceptual disturbance.? Patients insight and judgment appear intact. Data Data Completed and Pending Completed studies during hospitalization [Text1]: 06/23/21 06/23/21 06/23/21 15:58 15:58 15:58 WBC 8.1 RBC 5.53 Hgb 16.2 Hct 46.8 MCV 84.6 MCH 29.3 MCHC 34.6 RDW 13.8 Plt Count 245 MPV 10.6 Immature Gran % (Auto) 0.4 Neut % (Auto) 61.1 Lymph % (Auto) 30.4 [place] % (Auto) 6.3 Eos % (Auto) 1.2 Baso % (Auto) 0.6 Lymph # (Auto) 2.5 [place] # (Auto) 0.5 Eos # (Auto) 0.1 Baso # (Auto) 0.1 Abs Immat Gran (auto) 0.03 Absolute Neuts (auto) 4.91 Absolute Nucleated RBC 0.000 Nucleated RBC % (auto) 0.0 Sodium 141 Potassium 4.3 Chloride 105 Carbon Dioxide 29 Anion Gap 11 L BUN 11 Creatinine 1.02 Estim Creat Clear Calc 90.6 Estimated GFR > 60 Random Glucose 86 Calcium 9.6 D Total Bilirubin 0.6 AST 22 ALT 18 Alkaline Phosphatase 97 Ammonia Troponin I High Sens 6.9 B-Natriuretic Peptide Total Protein 7.4 Albumin 4.8 Lipase 33 TSH 1.02 Urine Color Urine Appearance Urine pH Ur Specific [place] Urine Protein Urine Glucose (UA) Urine Ketones Urine Blood Urine Nitrite Ur Leukocyte Esterase Urine Opiates Screen Urine Fentanyl Screen Ur Barbiturates Screen Ur Phencyclidine Scrn Ur Amphetamines Screen U Benzodiazepines Scrn Urine Cocaine Screen U Marijuana (THC) Screen Ethyl Alcohol COVID-19 (SALAZAR) COVID-19 Clin Com 06/23/21 06/23/21 06/23/21 15:58 15:58 15:58 WBC RBC Hgb Hct MCV MCH MCHC RDW Plt Count MPV Immature Gran % (Auto) Neut % (Auto) Lymph % (Auto) [place] % (Auto) Eos % (Auto) Baso % (Auto) Lymph # (Auto) [place] # (Auto) Eos # (Auto) Baso # (Auto) Abs Immat Gran (auto) Absolute Neuts (auto) Absolute Nucleated RBC Nucleated RBC % (auto) Sodium Potassium Chloride Carbon Dioxide Anion Gap BUN Creatinine Estim Creat Clear Calc Estimated GFR Random Glucose Calcium Total Bilirubin AST ALT Alkaline Phosphatase Ammonia 22 Troponin I High Sens B-Natriuretic Peptide 124 H Total Protein Albumin Lipase TSH Urine Color Urine Appearance Urine pH Ur Specific [place] Urine Protein Urine Glucose (UA) Urine Ketones Urine Blood Urine Nitrite Ur Leukocyte Esterase Urine Opiates Screen Urine Fentanyl Screen Ur Barbiturates Screen Ur Phencyclidine Scrn Ur Amphetamines Screen U Benzodiazepines Scrn Urine Cocaine Screen U Marijuana (THC) Screen Ethyl Alcohol COVID-19 (SALAZAR) Negative COVID-19 Clin Com See Note 06/23/21 06/23/21 06/23/21 16:48 18:08 18:11 WBC RBC Hgb Hct MCV MCH MCHC RDW Plt Count MPV Immature Gran % (Auto) Neut % (Auto) Lymph % (Auto) [place] % (Auto) Eos % (Auto) Baso % (Auto) Lymph # (Auto) [place] # (Auto) Eos # (Auto) Baso # (Auto) Abs Immat Gran (auto) Absolute Neuts (auto) Absolute Nucleated RBC Nucleated RBC % (auto) Sodium Potassium Chloride Carbon Dioxide Anion Gap BUN Creatinine Estim Creat Clear Calc Estimated GFR Random Glucose Calcium Total Bilirubin AST ALT Alkaline Phosphatase Ammonia Troponin I High Sens B-Natriuretic Peptide Total Protein Albumin Lipase TSH Urine Color YELLOW Urine Appearance CLEAR Urine pH 6.0 Ur Specific [place] <= 1.005 Urine Protein NEG Urine Glucose (UA) NEG Urine Ketones NEG Urine Blood NEG Urine Nitrite NEG Ur Leukocyte Esterase NEG Urine Opiates Screen Not Detected Urine Fentanyl Screen Not Detected Ur Barbiturates Screen Not Detected Ur Phencyclidine Scrn Not Detected Ur Amphetamines Screen Not Detected U Benzodiazepines Scrn Not Detected Urine Cocaine Screen POSITIVE H U Marijuana (THC) Screen POSITIVE H Ethyl Alcohol < 10 COVID-19 (SALAZAR) COVID-19 Clin Com Imaging Diagnostic Imaging Impressions Chest X-Ray 06/23/21 15:31 IMPRESSION: Unremarkable examination. DS: Summary Hospital Course Hospital Course: Patient is a 60-year-old male with history of depression, anxiety, PTSD and substance abuse who initially presented for epigastric pain and was treated in the ED; while in the ED patient's automatic car wash attendant reported patient had a note on the door of his house with a list of people he wanted to kill.? Patient was admitted to [facility] for assessment. Patient reports this is a misunderstanding and the the list was made years ago and remains a list to remind him to for give specific people for past harm's.? He denies that he is in any way suicidal or homicidal and has no plans or intent to harm anyone.? Patient maintains that he is very connected with his therapist and therapy groups at the [facility] and would reach out to any of them if he felt otherwise.? Golf Starter And Ranger discussed case with his therapist who has been seeing him for the past year who corroborates that patient is fully engaged in therapy, faithfully attending therapy sessions and his weekly PTSD group as well as taking his medications as prescribed.? She also says his rendition of events is plausible and does not think that he has any plans to harm others.? Patient? remains on a [address] and does not want to sign in saying that he does not require inpatient admission.? He is happy to be getting back on his medications but wants discharge and to resume treatment with his outpatient providers.? Patient has remained in good behavioral and impulse control, interacting appropriately with peers and staff.? He slept well last night and says he is tolerating his medications well, feeling calm and stable.? Both his outpatient prescriber and therapist agree that it seems preferable for him to demonstrate his stability on the unit for 1-2 days but that it is unlikely he needs further inpatient treatment.? Patient is reasonable, appropriate, calm with organized speech and behavior.? At this point securities underwriter cannot testify that patient is in imminent risk of harm to self or others; he is on medications that have been helpful and has strong outpatient support at the [facility].? Patient does not rise to the level of involuntary commitment at his request for discharge honored. Restarted Depakote; outpatient dosing is Depakote 500 q.a.m. and 14:50 Restarted Seroquel patient takes 50 mg t.i.d. and then 150 mg q.h.s. Restarted trazodone 50 mg at bedtime Also talked with patient's PTSD aquatics group fitness instructor Vesna Alejandro who has known him for the past 2 years and agrees that it is very unlikely patient had plans to harm others. Time spent discussing smoking cessation with patient: 3 to 10 minutes Status at Discharge Functional status at discharge: independent ambulation Overall status at discharge: patient is back to baseline Time Spent with Patient Time attestation: Total time spent providing and/or coordinating discharge services: Time spent: Greater than 30 minutes Discharge Plan Discharge Patient Disposition: Home, Self-Care Discharge Diagnosis: PTSD, Chronic with acute exacerbation, resolved Referrals: Jimmy Glaser (medication management) [Other] - 07/30/21 8:30 am (This appointment is in-office) Rosi Pedraza (therapy) [Other] - 06/30/21 1:00 pm (This appointment is in-office) Anuja Martines (Vivitrol shot) [Other] - 07/07/21 (This appointment is in-office to receive your Vivitrol shot) Raven Gilbert MD [Primary Care Provider] - 1 Week (PLEASE CALL TO MAKE A FOLLOW UP APPOINTMENT. ) Discharge Medications: New trazodone 50 mg Tablet 50 mg PO BEDTIME Qty: 0 RF: 0 divalproex 500 mg Tablet Extended Release 24 Hr 500 mg PO DAILY Qty: 0 RF: 0 divalproex 250 mg Tablet Extended Release 24 Hr 250 mg PO BEDTIME Qty: 0 RF: 0 quetiapine 50 mg Tablet 150 mg PO BEDTIME Qty: 0 RF: 0 quetiapine 50 mg Tablet 50 mg PO TID Qty: 0 RF: 0 Continued Vivitrol RF: 0 famotidine [Pepcid] 20 mg tablet 20 mg PO BID Qty: 20 RF: 0 ondansetron HCl [Zofran] 4 mg tablet 4 mg PO Q6H PRN (Reason: nause) 30 Days Qty: 10 RF: 0 Discharge Orders: Discharge Order (Routine); Ordered 06/26/21 Ordered By: Ari Ryan Diet: regular diet Activity on Discharge: As tolerated Stand Alone Forms: Patient Portal Discharge page, Community Support Care Plan Goals: Maintain mood and safe behaviors Take medications as prescribed Continue to pursue sobriety Practice coping skills Continue with outpatient providers and reach out to them as needed Health Concerns: Mood stability and behaviors Sobriety Plan of Treatment: Follow up with your PCP, psychiatric provider and other outpatient providers regarding above concerns Take medications as prescribed Assessment: Risk assessment at time of discharge:? Patient was interviewed prior to discharge and found to be fully oriented and without any SI or HI. Patient has insight and demonstrates good judgment in terms of wanting to pursue treatment. Patient is not in imminent risk of harm to self or others and has a safety plan that includes presenting to the closest ER or calling 911 if feeling unsafe.? Patient has been observed closely by nursing and unit staff throughout admission; patient has not engaged in any behaviors that suggest dangerousness to self or others and has demonstrated appropriate behaviors and impulse control Discharge Date/Time: 06/26/21 12:30
[2021-06-26] MEDS: Divalproex Sodium ER 500 MG TAB.ER.24H PO (09:43)
[2021-06-26] MEDS: QUEtiapine Fumarate 50 MG TABLET PO (09:43)
== END 2021-06-26 12:30 | disposition home or self-care (01) | DRG 885 ==
LOC: HO.ED 18:34 → HO.PM5 06-24 16:26
PROVIDERS: Admitting Provider Psychiatry & Neurology Psychiatry; Emergency Provider Emergency Medicine; PCP Family Medicine; Visit Provider Psychiatry & Neurology Psychiatry
DX: F33.1 Major depressive disorder, recurrent, moderate (principal); R45.850 Homicidal ideations; F43.10 Post-traumatic stress disorder, unspecified; K29.70 Gastritis, unspecified, without bleeding; Z20.822 Contact with and (suspected) exposure to COVID-19; Z87.891 Personal history of nicotine dependence; Z88.6 Allergy status to analgesic agent; Z79.899 Other long term (current) drug therapy
CPT/HCPCS: 36415; 71046; 80053; 80307; 81003; 82077; 82140; 83690; 83880; 84443; 84484; 85025; 87635; 93005; 96361; 96374; 96375; 99285; J2405

== ENCOUNTER 2022-11-09 03:25 | Emergency (ER) | payer MEDICARE, MEDICAID, SELFPAY ==
[2022-11-09 03:34] VITALS: BP 143/88; BP 153/87; PULSE 75; RESP 18; TEMP 36.7; O2SAT 100; BMI 21.7
[2022-11-09 03:45] VITALS: BP 143/88; BP 153/87; PULSE 55; PULSE 75; RESP 18; TEMP 36.7; O2SAT 100; O2SAT 97; BMI 21.3
[2022-11-09 03:45] LABS: MANUAL DIFF FLAG NO
--- NOTE | 2022-11-09 03:45 | ECG_ITS ---
Test Reason : ABDOMINAL PAIN Blood Pressure : / mmHG Vent. Rate : 053 BPM Atrial Rate : 053 BPM P-R Int : 166 ms QRS Dur : 096 ms QT Int : 440 ms P-R-T Axes : 077 055 050 degrees QTc Int : 412 ms Sinus bradycardia Otherwise normal ECG When compared with ECG of 23-JUN-2021 16:12, No significant change was found Referred By: Generic ED Physician Electronically Signed By:SAVANNAH CARTER MD
[2022-11-09 03:46] LABS: Basophils Absolute Auto 0.1 X10*3/uL (0.0-0.2); Basophils Percent Auto 0.6 % (0-2); Eosinophils Absolute Auto 0.1 X10*3/uL (0.0-0.4); Eosinophils Percent Auto 1.3 % (0-4); Hematocrit 44.7 % (42.0-52.0); Hemoglobin 15.6 g/dl (14.0-18.0); Imm Gran Abs Auto 0.05 X10*3/uL (0.00-0.03); Imm Gran Pct Auto 0.5 % (0.0-0.4); Lymphocytes Absolute Auto 1.9 X10*3/uL (1.2-4.9); Lymphocytes Percent Auto 17.8 % (20-40); Mean Corpuscular HGB Conc 34.9 g/dl (31.0-36.0); Mean Corpuscular Hemoglobin 28.8 pg (27.0-33.0); Mean Corpuscular Volume 82.5 fL (80.0-98.0); Mean Platelet Volume 10.7 fL (9.4-12.4); Monocytes Absolute Auto 0.7 X10*3/uL (0.1-1.2); Monocytes Percent Auto 6.3 % (2-11); Neutrophils Absolute Auto 7.7 x10*3/uL (2.0-8.3); Neutrophils Percent Auto 73.5 % (45-73); Platelet Count 233 X10*3/uL (160-400); Red Blood Count 5.42 X10*6/uL (4.60-5.80); Red Cell Distribution Width 14.1 % (11.0-16.0); White Blood Count 10.4 X10*3/uL (4.8-10.8)
[2022-11-09 03:52] VITALS: BP 142/85; PULSE 56; RESP 18; TEMP 36.6; O2SAT 98
--- NOTE | 2022-11-09 04:06 | PC.NURSE ---
Patient alert and oriented. He arrived via EMS with reports of N/V/D x2-3 days. He reports for the last 1.5 days he has been vomiting bile. He also reports center chest pain. Patient arrived with 18 gauge IV left ac. Line was patent. He notes that he has an upcoming endoscopy and colonoscopy due to a blockage. He rates his abdominal pain at a 6out of 10 and notes tenderness in the RLQ. Headache pain noted as well. Call stringer within reach. Awaiting disposition at this time.
[2022-11-09 04:09] LABS: Anion Gap 15 (12-20); Blood Urea Nitrogen 15 mg/dL (9-16); Calcium 9.7 mg/dL (8.4-10.2); Carbon Dioxide 29 mmol/L (22-29); Chloride 104 mmol/L (96-108); Creatinine Clr Calc Pharmacy 70.1; Estimated Glomerular Filt Rate > 60; Glucose Random 102 mg/dL (60-115); Lipase 16 U/L (8-78); Potassium 3.5 mmol/L (3.3-5.1); Sodium 144 mmol/L (135-145)
[2022-11-09 04:22] LABS: Influenza A PCR NEGATIVE (Negative); Influenza B PCR NEGATIVE (Negative); Resp Syncy Virus RNA Qual PCR NEGATIVE (Negative); SARS COV2 PCR INHOUSE NEGATIVE (Negative)
[2022-11-09 05:16] VITALS: BP 120/75; PULSE 63; RESP 10; O2SAT 98
--- NOTE | 2022-11-09 07:00 | ED.NAVMDI ---
HPI - Nausea/Vomiting/Diarrhea General Chief complaint: Nausea/Vomiting/Diarrhea Stated complaint: ETOH USE,NAUSEA,VOMITING Time Seen by Provider: 11/09/22 06:59 Source: patient Mode of arrival: ambulatory Limitations: no limitations History of Present Illness HPI Narrative: Patient feels that he is not digesting food properly and has been vomiting intermittenly for weeks. Patient has a prescription for zofran at home. MD elicited complaint: nausea, vomiting and diarrhea Pertinent past history: other (history of vomiting) Onset (ago): week(s) Description of diarrhea: watery Associated nausea: Yes Associated abdominal pain: No Exacerbating factors: eating Relieving factors: none Related Data Home Medications Medication Instructions Recorded Confirmed Vivitrol 06/13/20 Vivitrol 06/13/20 Previous Rx's Medication Instructions Recorded famotidine 20 mg tablet (Pepcid) 20 mg PO BID GERD #20 tabs 06/13/20 divalproex 250 mg tablet,extended 250 mg PO BEDTIME #0 tabs 06/26/21 release 24 hr divalproex 500 mg tablet,extended 500 mg PO DAILY #0 tabs 06/26/21 release 24 hr ondansetron HCl 4 mg tablet 4 mg PO Q6H PRN nause 30 days #10 06/26/21 (Zofran) tabs quetiapine 50 mg tablet 50 mg PO TID #0 tabs 06/26/21 quetiapine 50 mg tablet 150 mg PO BEDTIME #0 tabs 06/26/21 trazodone 50 mg tablet 50 mg PO BEDTIME #0 tabs 06/26/21 Allergies Allergy/AdvReac Type Severity Reaction Status Date / Time omeprazole [OMEPRAZOLE] Allergy Unknown Nausea and Verified 07/22/21 11:24 Vomiting aspirin AdvReac Nausea and Verified 07/22/21 11:24 Vomiting ibuprofen AdvReac Nausea and Verified 07/22/21 11:24 Vomiting pantoprazole AdvReac Nausea and Verified 07/22/21 11:24 Vomiting Review of Systems Review of Systems: Yes all other systems are reviewed and are negative Gastrointestinal: Gastrointestinal: Reports diarrhea, Reports nausea and Reports vomiting Neurologic: Denies Sensory deficit (Neuro) PMFSH Past Medical History Medical History Anxiety Anxiety ETOH abuse ETOH abuse Gastritis Gastritis MDD (major depressive disorder), recurrent episode, moderate PTSD (post-traumatic stress disorder) PTSD (post-traumatic stress disorder) Social History Social History Household Members: None Household Members Other:: Pt reports he lives in [place] Housing: Apartment Housing Other:: Retired Home Do you presently have visiting nurse or other home services: Yes ([employer] 2x week) Alcohol intake: former Patient Tobacco Use Status: Former Tobacco user Tobacco use type: Cigarette Smoked in Last 30 Days: No Second Hand Smoke Exposure: No Use of substances other than those prescribed or required for medical reasons: No Substance Use Type: Marijuana Advance Directives: No Advance Directives Information Provided: Yes service: Yes Sexual orientation: Did not discuss Physical Exam Vital Signs: Vital Signs: Last Vital Signs Temp 98 F 11/09/22 03:52 Pulse 63 11/09/22 05:16 Resp 10 L 11/09/22 05:16 BP 120/75 11/09/22 05:16 Pulse Ox 98 11/09/22 05:16 O2 Del Method 11/09/22 05:16 BMI result Body Mass Index 21.3 Const: General: healthy appearing Nutritional Appearance: average body habitus Orientation/consciousness: oriented to person and patient oriented x3 Limitations: no limitations HEENT: Head: Yes normal to inspection Ears: external ears normal General nose exam: Normal external nose present Mouth: Normal oral and palatal mucosa present and oropharynx normal Throat: Yes posterior oropharynx normal Eyes: General: appearance normal, both eyes and all related structures Neck: Other: supple Neck: Yes normal visual inspection Chest: Chest palpation & inspection: normal inspection of the chest Resp: Auscultation: clear to auscultation bilaterally Cardio: Jugular venous distension: no JVD Rate: regular rate Rhythm: regular rhythm Heart sounds: S1 normal heart sound present and S2 normal heart sound present GI: Other: old midline scar, mild right upper pain Inspection: Yes normal to inspection Palpation (GI): Soft to palpation and No hepatosplenomegaly present Auscultation: normal bowel sounds : General: Yes no CVA tenderness Back/Spine/Pelvis: Back: no CVA tenderness Skin: General skin exam: no rashes or lesions noted Neuro: General: oriented to person and patient oriented x3 Cranial nerves: Yes CN's II-XII intact bilaterally Motor exam (neuro): 12/24 motor strength present throughout Sensory Exam: No Sensory deficit (Neuro) Extrem: General: Yes normal to inspection Psych: Appearance: grossly normal Course Reevaluation(s) Reevaluation #1: physical and labs are normal, patient with a long history of the above symptoms, he is scheduled for upper and lower endoscopy in one week. Time: 07:37 Medical Decision Making Differential Diagnosis Differential Diagnoses: The differential diagnosis associated with the presentation includes (cyclical vomiting, gastric ulcer, pancreatitis, pancreatic insufficiency, COVID, Influenza) Admission/Observation Consideration of admission/observation: Escalation of care including admission/observation considered (In this male with prior alcohol problems and liver injury admission was considered) Lab Data MDM Lab Attestation statement: I reviewed the patient's lab results. 11/09/22 03:40 11/09/22 03:40 Labs: Lab Results 11/09/22 11/09/22 11/09/22 Range/Units 03:40 03:40 03:40 WBC 10.4 (4.8-10.8) X10*3/uL RBC 5.42 (4.60-5.80) X10*6/uL Hgb 15.6 (14.0-18.0) g/dl Hct 44.7 (42.0-52.0) % MCV 82.5 (80.0-98.0) fL MCH 28.8 (27.0-33.0) pg MCHC 34.9 (31.0-36.0) g/dl RDW 14.1 (11.0-16.0) % Plt Count 233 (160-400) X10*3/uL MPV 10.7 (9.4-12.4) fL Immature Gran % (Auto) 0.5 H (0.0-0.4) % Neut % (Auto) 73.5 H (45-73) % Lymph % (Auto) 17.8 L (20-40) % [place] % (Auto) 6.3 (2-11) % Eos % (Auto) 1.3 (0-4) % Baso % (Auto) 0.6 (0-2) % Lymph # (Auto) 1.9 (1.2-4.9) X10*3/uL [place] # (Auto) 0.7 (0.1-1.2) X10*3/uL Eos # (Auto) 0.1 (0.0-0.4) X10*3/uL Baso # (Auto) 0.1 (0.0-0.2) X10*3/uL Abs Immat Gran (auto) 0.05 H (0.00-0.03) X10*3/uL Absolute Neuts (auto) 7.7 (2.0-8.3) x10*3/uL Absolute Nucleated RBC 0.000 (0.0-0.012) X10*3/uL Nucleated RBC % (auto) 0.0 (0.0-0.2) /100WBC Sodium 144 (135-145) mmol/L Potassium 3.5 (3.3-5.1) mmol/L Chloride 104 (96-108) mmol/L Carbon Dioxide 29 (22-29) mmol/L Anion Gap 15 (12-20) BUN 15 (9-16) mg/dL Creatinine 1.15 (0.5-1.4) mg/dL Estim Creat Clear Calc 70.1 Estimated GFR > 60 Random Glucose 102 (60-115) mg/dL Calcium 9.7 (8.4-10.2) mg/dL Lipase 16 (8-78) U/L Influenza Type A (PCR) NEGATIVE (Negative) Influenza Type B (PCR) NEGATIVE (Negative) RSV RNA Qual (PCR) NEGATIVE (Negative) SARS-CoV-2 RNA (RT-PCR) NEGATIVE (Negative) Tests considered The following testing was considered but not selected: CT scan was considered but labs, and physical was normal and patient has scheduled endoscopy Discharge Plan Discharge Clinical Impression: Gastroenteritis, Cyclical vomiting Patient Disposition: Home, Self-Care Instructions: Acute Nausea and Vomiting (ED), Peptic Ulcer (ED) Additional Instructions: continue taking your zofran and omeprazole Prescriptions: No Action Vivitrol Vivitrol famotidine [Pepcid] 20 mg tablet 20 mg PO BID Qty: 20 0RF trazodone 50 mg Tablet 50 mg PO BEDTIME Qty: 0 0RF divalproex 500 mg Tablet Extended Release 24 Hr 500 mg PO DAILY Qty: 0 0RF divalproex 250 mg Tablet Extended Release 24 Hr 250 mg PO BEDTIME Qty: 0 0RF quetiapine 50 mg Tablet 150 mg PO BEDTIME Qty: 0 0RF quetiapine 50 mg Tablet 50 mg PO TID Qty: 0 0RF ondansetron HCl [Zofran] 4 mg tablet 4 mg PO Q6H PRN (Reason: nause) 30 Days Qty: 10 0RF Referrals: Barry Nickerson MD [Primary Care Provider] - 5 days
[2022-11-09] MEDS: ondansetron HCL 4 MG/2 ML VIAL IVPUSH (07:47)
[2022-11-09] MEDS: Pantoprazole Sodium 40 MG/10 ML VIAL IVPUSH (07:47)
== END 2022-11-09 08:42 | disposition home or self-care (01) ==
PROVIDERS: Emergency Provider Emergency Medicine; PCP Internal Medicine
DX: K52.9 Noninfective gastroenteritis and colitis, unspecified (principal); R11.15 Cyclical vomiting syndrome unrelated to migraine; Z20.822 Contact with and (suspected) exposure to COVID-19; Z20.828 Contact with and (suspected) exposure to other viral communicable diseases; Z79.899 Other long term (current) drug therapy
CPT/HCPCS: 0241U; 36415; 80048; 83690; 85025; 93005; 96374; 96375; 99284; 99285; J2405

== ENCOUNTER 2023-07-17 00:32 | Observation (INO) | payer OTHER, MEDICARE, MEDICAID, SELFPAY ==
[2023-07-17] VITALS (10 sets, daily range): BP systolic 114–171; BP diastolic 69–101; PULSE 48–64; RESP 15–20; TEMP 36.3–37.1; O2SAT 95–99; BMI 22.4
--- NOTE | ~2023-07-17 | CT_ITS ---
EXAMINATION: CT ABDOMEN AND PELVIS WITHOUT CONTRAST CLINICAL INFORMATION: Right abdominal pain with vomiting COMPARISON: 07/30/2019 TECHNIQUE: Multidetector volumetric imaging was performed from the superior aspect of the liver through the pubic symphysis. Sagittal and coronal reformatted images were obtained on the technologist's workstation. This CT examination was performed using dose optimization techniques as appropriate, variously including the following: *Automated exposure control *Adjustment of mA and/or kV according to patient size (this includes techniques or standardized protocols for targeted exams where dose is matched to indication/reason for exam; i.e. extremities or head) *Use of iterative reconstruction technique DLP: 479 mGy-cm FINDINGS: LUNG BASES: The visualized lung bases are unremarkable. LIVER, GALLBLADDER, AND BILIARY TREE: The liver is normal in size, shape, and attenuation. No focal hepatic lesion or biliary ductal dilatation is identified on this noncontrast exam. The gallbladder is unremarkable with no evidence of radiopaque gallstones, gallbladder wall thickening, or obvious pericholecystic inflammatory changes. PANCREAS: Unremarkable. SPLEEN: Unremarkable. ADRENAL GLANDS: Unremarkable. KIDNEYS AND URETERS: No hydronephrosis or obstructing calculus bilaterally. Few bilateral renal cysts are noted; no follow-up recommended. BLADDER: Unremarkable. GASTROINTESTINAL TRACT: No evidence of bowel obstruction or significant wall thickening. Mild colonic diverticulosis. The appendix is unremarkable. No free fluid or free air is seen. ABDOMINAL WALL: No significant hernia is appreciated. LYMPH NODES: No lymphadenopathy is seen, though assessment is limited in the absence of intravenous contrast. VASCULAR: There is atherosclerotic calcification along the aorta and iliac arteries. PELVIC VISCERA: Unremarkable. OSSEOUS STRUCTURES: Degenerative changes in the lumbar spine, most prominently at L2-L3 and L5-S1 along with multilevel facet arthropathy. CT/CT abdomen pelvis wo IV con IMPRESSION: No acute findings identified in the abdomen/pelvis.
[2023-07-17 01:31] LABS: MANUAL DIFF FLAG NO
[2023-07-17 01:32] LABS: Basophils Absolute Auto 0.1 X10*3/uL (0.0-0.2); Basophils Percent Auto 0.7 % (0-2); Eosinophils Absolute Auto 0.1 X10*3/uL (0.0-0.4); Eosinophils Percent Auto 1.5 % (0-4); Hematocrit 44.2 % (42.0-52.0); Hemoglobin 15.2 g/dl (14.0-18.0); Imm Gran Abs Auto 0.02 X10*3/uL (0.00-0.03); Imm Gran Pct Auto 0.2 % (0.0-0.4); Lymphocytes Absolute Auto 1.8 X10*3/uL (1.2-4.9); Lymphocytes Percent Auto 21.8 % (20-40); Mean Corpuscular HGB Conc 34.4 g/dl (31.0-36.0); Mean Corpuscular Hemoglobin 28.3 pg (27.0-33.0); Mean Corpuscular Volume 82.2 fL (80.0-98.0); Mean Platelet Volume 11.1 fL (9.4-12.4); Monocytes Absolute Auto 0.7 X10*3/uL (0.1-1.2); Monocytes Percent Auto 8.7 % (2-11); Neutrophils Absolute Auto 5.5 x10*3/uL (2.0-8.3); Neutrophils Percent Auto 67.1 % (45-73); Platelet Count 231 X10*3/uL (160-400); Red Blood Count 5.38 X10*6/uL (4.60-5.80); Red Cell Distribution Width 14.4 % (11.0-16.0); White Blood Count 8.2 X10*3/uL (4.8-10.8)
--- NOTE | 2023-07-17 01:32 | PC.NURSE ---
Pt presents to ED with nausea/vomiting/diarrhea starting one day ago after returning from vacation. Pt reporting 8/10 abd pain. Pt is A&Ox4, GCS 15, warm and dry skin. Pt has elevated BP, states his doctor took him off of lisinopril 4 months ago and his pressure has been high since, MD aware. Placed an 18g IV in the right AC, blood drawn and sent to lab. at the bedside at this time.
--- NOTE | 2023-07-17 01:37 | ED.NAVMDI ---
HPI - Nausea/Vomiting/Diarrhea General Chief complaint: Nausea/Vomiting/Diarrhea Stated complaint: VOMITING, DIARRHEA Time Seen by Provider: 07/17/23 01:29 Source: patient and EMS Mode of arrival: EMS Limitations: no limitations History of Present Illness HPI Narrative: A 62-year-old male brought in by ambulance for evaluation of nausea, vomiting, nonbloody watery diarrhea x3 days. Patient just traveled from [place] after visiting his family for Thanksgiving started yesterday having nausea, vomiting, and nonbloody watery diarrhea no fever or chills, patient is unable to keep any oral intake for the past 3 days, also been having nonbloody watery diarrhea constantly for the last 3 days. Patient declined sick contact or food poisoning possibility. Related Data Home Medications Medication Instructions Recorded Confirmed Vivitrol 06/13/20 Vivitrol 06/13/20 Previous Rx's Medication Instructions Recorded famotidine 20 mg tablet (Pepcid) 20 mg PO BID GERD #20 tabs 06/13/20 divalproex 250 mg tablet,extended 250 mg PO BEDTIME #0 tabs 06/26/21 release 24 hr divalproex 500 mg tablet,extended 500 mg PO DAILY #0 tabs 06/26/21 release 24 hr ondansetron HCl 4 mg tablet 4 mg PO Q6H PRN nause 30 days #10 06/26/21 (Zofran) tabs quetiapine 50 mg tablet 50 mg PO TID #0 tabs 06/26/21 quetiapine 50 mg tablet 150 mg (3 x 50 mg) PO BEDTIME #0 06/26/21 tabs trazodone 50 mg tablet 50 mg PO BEDTIME #0 tabs 06/26/21 ondansetron 4 mg disintegrating 4 mg PO Q8-12H PRN nausea and 07/17/23 tablet vomiting #7 tabs Allergies Allergy/AdvReac Type Severity Reaction Status Date / Time omeprazole [OMEPRAZOLE] Allergy Unknown Nausea and Verified 07/17/23 00:44 Vomiting aspirin AdvReac Nausea and Verified 07/17/23 00:44 Vomiting ibuprofen AdvReac Nausea and Verified 07/17/23 00:44 Vomiting pantoprazole AdvReac Nausea and Verified 07/17/23 00:44 Vomiting Review of Systems Review of Systems: All other systems are reviewed and are negative Constitutional: Reports as per HPI and Reports no additional constitutional complaints Eyes: Reports as per HPI and Reports no additional eye complaints Reports system reviewed and no additional complaints, except as documented Cardiovascular: Reports as per HPI and Reports no additional cardiovascular complaints Respiratory: Reports as per HPI and Reports no additional respiratory complaints Gastrointestinal: Reports as per HPI and Reports no additional gastrointestinal complaints Genitourinary: Reports no additional female genitourinary complaints Musculoskeletal: Reports no additional musculoskeletal complaints Skin/Breast: Reports system reviewed and no additional complaints, except as docu Psychiatric: Reports no additional psychiatric complaints Endocrine: Reports no additional endocrine complaints Hematologic/Lymphatic: Reports no additional hematologic/lymphatic complaints Allergic/Immunologic: Reports no additional allergic/immunologic complaints Reports system reviewed and no additional complaints, except as documented and Reports Abnormal speech present [facility] Past Medical History Medical History ETOH abuse Gastritis Anxiety PTSD (post-traumatic stress disorder) MDD (major depressive disorder), recurrent episode, moderate Gastritis ETOH abuse Anxiety PTSD (post-traumatic stress disorder) Social History Household Members: None Household Members Other:: Pt reports he lives in [place] Housing: Apartment Housing Other:: Retired Home Do you presently have visiting nurse or other home services: Yes ([employer] 2x week) Alcohol intake: former Patient Tobacco Use Status: Former Tobacco user Tobacco use type: Cigarette Smoked in Last 30 Days: Yes Second Hand Smoke Exposure: No Use of substances other than those prescribed or required for medical reasons: Yes Substance Use Type: Marijuana Substance Use Frequency: Daily Advance Directives: No Advance Directives Information Provided: Yes service: Yes Sexual orientation: Did not discuss Physical Exam Vital Signs: Vital Signs: Last Vital Signs Temp 98.2 F 07/17/23 03:41 Pulse 56 07/17/23 03:41 Resp 18 07/17/23 03:41 BP 135/83 07/17/23 03:41 Pulse Ox 95 07/17/23 03:41 O2 Del Method Room Air 07/17/23 03:41 BMI result Body Mass Index 22.4 Vital signs have been reviewed and appear to be correct. Blood pressure elevated. Heart rate normal. Respiratory rate normal. Temperature normal. Oxygen saturation normal. Appearance: Alert. Oriented X3. No acute distress. Head: Normal external exam. Normocephalic. Atraumatic. No Al signs noted. No raccoon eyes noted Eyes: PERRLA. EOMI. Conjunctiva and sclera normal. Eyelids normal. ENT: TM's Normal. Pharynx normal. Uvula midline. Moist mucous membranes. No trismus noted. No drooling noted. No muffled voice noted. Neck: Normal inspection. Neck supple. FROM. No adenopathy. Thyroid Normal. No meningeal signs. No neck mass noted. CVS: Normal heart rate and rhythm. Heart sound normal. No murmurs noted. Pulses normal throughout. Respiratory: No respiratory distress. Painless inspiration. Breath sounds normal. No wheezes/rales/rhonchi noted. Chest nontender. No accessory muscle usage noted or decreased air movement noted. Abdomen: Epigastric, right lower quadrant, and left lower quadrant tenderness with no rebound tenderness or guarding. Bowel sounds normal in all 4 quadrants. No distention noted. No organomegaly noted. No visible injury noted. Back: No CVA tenderness. Full range of motion noted. Skin: Skin warm and dry. Normal skin color. Normal skin turgor. No rashes/lesions/lacerations noted. Extremities: No lower extremity edema. Extremities exhibit normal range of motion. Extremities nontender. Neuro: Oriented X 3. Cranial nerve exam: II-XII are grossly intact No motor deficit. No sensory deficit. Reflexes normal. Course Reevaluation(s) Reevaluation #1: Feels slightly better, not able to tolerate p.o. intake with nausea and vomiting, unremarkable labs and abdomen CT. Will admit for IV hydration and anti emetic. Time: 05:35 Medications Administered Discontinued Medications Generic Name Dose Route Start Last Admin Trade Name Freq PRN Reason Stop Dose Admin Famotidine 20 mg 07/17/23 01:37 07/17/23 01:48 Famotidine/Pf 20 Mg/2 Ml Vial IVPUSH 07/17/23 01:38 20 mg ONCE ONE Administration Loperamide HCl 2 mg 07/17/23 03:56 07/17/23 04:16 Loperamide Hcl 2 Mg Capsule PO 07/17/23 03:57 2 mg ONCE ONE Administration Ondansetron HCl 4 mg 07/17/23 01:37 07/17/23 01:48 Ondansetron Hcl 4 Mg/2 Ml Vial IVPUSH 07/17/23 01:38 4 mg ONCE ONE Administration Ondansetron HCl 4 mg 07/17/23 03:58 07/17/23 04:15 Ondansetron Hcl 4 Mg/2 Ml Vial IVPUSH 07/17/23 03:59 4 mg ONCE ONE Administration Medical Decision Making Differential Diagnosis Differential Diagnoses: The differential diagnosis associated with the presentation includes (Acute appendicitis, colitis, diverticulitis, gastritis, gastroenteritis, electrolyte abnormality, dehydration, severe anemia.) Admission/Observation Consideration of admission/observation: Escalation of care including admission/observation considered Lab Data MDM Lab Attestation statement: I reviewed the patient's lab results. 07/17/23 01:27 07/17/23 01:27 Labs: Lab Results 07/17/23 07/17/23 Range/Units 01:27 03:46 WBC 8.2 (4.8-10.8) X10*3/uL RBC 5.38 (4.60-5.80) X10*6/uL Hgb 15.2 (14.0-18.0) g/dl Hct 44.2 (42.0-52.0) % MCV 82.2 (80.0-98.0) fL MCH 28.3 (27.0-33.0) pg MCHC 34.4 (31.0-36.0) g/dl RDW 14.4 (11.0-16.0) % Plt Count 231 (160-400) X10*3/uL MPV 11.1 (9.4-12.4) fL Immature Gran % (Auto) 0.2 (0.0-0.4) % Neut % (Auto) 67.1 (45-73) % Lymph % (Auto) 21.8 (20-40) % [place] % (Auto) 8.7 (2-11) % Eos % (Auto) 1.5 (0-4) % Baso % (Auto) 0.7 (0-2) % Lymph # (Auto) 1.8 (1.2-4.9) X10*3/uL [place] # (Auto) 0.7 (0.1-1.2) X10*3/uL Eos # (Auto) 0.1 (0.0-0.4) X10*3/uL Baso # (Auto) 0.1 (0.0-0.2) X10*3/uL Abs Immat Gran (auto) 0.02 (0.00-0.03) X10*3/uL Absolute Neuts (auto) 5.5 (2.0-8.3) x10*3/uL Absolute Nucleated RBC 0.000 (0.0-0.012) X10*3/uL Nucleated RBC % (auto) 0.0 (0.0-0.2) /100WBC Sodium 142 (135-145) mmol/L Potassium 4.0 (3.3-5.1) mmol/L Chloride 107 (96-108) mmol/L Carbon Dioxide 28 (22-29) mmol/L Anion Gap 11 L (12-20) BUN 10 (9-16) mg/dL Creatinine 1.02 (0.5-1.4) mg/dL Estim Creat Clear Calc 82.9 Estimated GFR > 60 Random Glucose 96 (60-115) mg/dL Calcium 9.5 (8.4-10.2) mg/dL Total Bilirubin 1.0 (0.0-1.0) mg/dL Direct Bilirubin 0.3 (0.0-0.5) mg/dL AST 27 (5-37) U/L ALT 18 (0-40) U/L Alkaline Phosphatase 83 (39-117) U/L Total Protein 7.1 (6.5-8.0) g/dL Albumin 4.2 (3.5-5.0) g/dL Lipase 11 (8-78) U/L Urine Color Yellow Urine Appearance Clear Urine pH 7.0 (5.0-9.0) Ur Specific [place] 1.015 (1.005-1.025) Urine Protein Negative (Neg-Trace) mg/dL Urine Glucose (UA) Negative (Negative) mg/dL Urine Ketones Negative (Negative) mg/dL Urine Blood Negative (Negative) Urine Nitrite Negative (Negative) Ur Leukocyte Esterase Negative (Negative) Independent Interpretation I performed an independent interpretation of an: CT Scan (Abdomen and pelvis: No acute intra-abdominal pathology ) Radiology Impression Discussion of test interpretation with radiology: I have reviewed the radiologist's reading. Discharge Plan Discharge Clinical Impression: Gastroenteritis, Intractable vomiting Patient Disposition: Admitted As Inpatient Instructions: Gastroenteritis (ED) Prescriptions: New ondansetron 4 mg tablet,disintegrating 4 mg PO Q8-12H PRN (Reason: nausea and vomiting) Qty: 7 0RF No Action Vivitrol Vivitrol famotidine [Pepcid] 20 mg tablet 20 mg PO BID Qty: 20 0RF trazodone 50 mg Tablet 50 mg PO BEDTIME Qty: 0 0RF divalproex 500 mg Tablet Extended Release 24 Hr 500 mg PO DAILY Qty: 0 0RF divalproex 250 mg Tablet Extended Release 24 Hr 250 mg PO BEDTIME Qty: 0 0RF quetiapine 50 mg Tablet 150 mg PO BEDTIME Qty: 0 0RF quetiapine 50 mg Tablet 50 mg PO TID Qty: 0 0RF ondansetron HCl [Zofran] 4 mg tablet 4 mg PO Q6H PRN (Reason: nause) 30 Days Qty: 10 0RF
[2023-07-17] MEDS: ondansetron HCL 4 MG/2 ML VIAL IVPUSH ×3 (01:48→20:01)
[2023-07-17] MEDS: Famotidine/PF 20 MG/2 ML VIAL IVPUSH (01:48)
[2023-07-17 01:52] LABS: Alanine Aminotransferase 18 U/L (0-40); Albumin Level 4.2 g/dL (3.5-5.0); Alkaline Phosphatase 83 U/L (39-117); Anion Gap 11 (12-20); Aspartate Amino Transferase 27 U/L (5-37); Bilirubin Direct 0.3 mg/dL (0.0-0.5); Blood Urea Nitrogen 10 mg/dL (9-16); Calcium 9.5 mg/dL (8.4-10.2); Carbon Dioxide 28 mmol/L (22-29); Chloride 107 mmol/L (96-108); Creatinine Clr Calc Pharmacy 82.9; Estimated Glomerular Filt Rate > 60; Glucose Random 96 mg/dL (60-115); Lipase 11 U/L (8-78); Sodium 142 mmol/L (135-145); Total Protein 7.1 g/dL (6.5-8.0)
[2023-07-17 03:52] LABS: Appearance Urine Clear; Color Urine Yellow; Glucose Urine UA Negative (Negative); Leukocyte Esterase Urine Negative (Negative); Nitrite Urine Negative (Negative); Specific Gravity - Urine 1.015 (1.005-1.025); Urine Blood Negative (Negative); Urine Ketones Negative (Negative); Urine Protein Negative (Neg-Trace)
[2023-07-17] MEDS: Loperamide HCl 2 MG CAPSULE PO (04:16)
[2023-07-17] MEDS: Lactated Ringers 1,000 ML 100 ML IVCONT ×2 (05:20→15:49)
--- NOTE | 2023-07-17 05:37 | P.HPHOSP_ITS ---
History of Present Illness Date of Service: 07/17/23 Chief Complaint: Abdominal pain This is a 62-year-old male past medical history of gastritis, PTSD, anxiety, alcohol abuse comes into the hospital with complaints of abdominal pain. Patient reports that the abdominal pain started the day prior to presentation, localized to the lower abdomen, associated with nausea and several episodes of vomiting. He has had diarrhea close to 20 times per patient, reports some blood in the diarrhea, no previous similar episode. Denies any fever, no chills, no chest pain, no urinary symptoms and no lower extremity edema. No headache or change in vision, no numbness weakness or tingling. On arrival To the ED patient hemodynamically stable slightly elevated blood pressure Labs are significant for WBC count of 8.2, labs otherwise unremarkable At this time patient tells me that he has not been drinking alcohol CT of the abdomen pelvic shows no significant abnormality Patient has had intractable nausea vomiting, will be admitted for further management Review of Systems 2 Review of Systems: Yes all other systems are reviewed and are negative PMFSH Medical History ETOH abuse Gastritis Anxiety PTSD (post-traumatic stress disorder) MDD (major depressive disorder), recurrent episode, moderate Gastritis ETOH abuse Anxiety PTSD (post-traumatic stress disorder) Household Members: None Household Members Other:: [facility] Housing: Apartment Housing Other:: Retired Home Do you presently have visiting nurse or other home services: Yes ([employer] 2x week) Alcohol intake: former Patient Tobacco Use Status: Former Tobacco user Tobacco use type: Cigarette Smoked in Last 30 Days: Yes Second Hand Smoke Exposure: No Use of substances other than those prescribed or required for medical reasons: Yes Substance Use Type: Marijuana Substance Use Frequency: Daily Advance Directives: No Advance Directives Information Provided: Yes Nutrition Risks: No Nutritional Risk service: Yes Sexual orientation: Did not discuss Meds Allergies Allergy/AdvReac Type Severity Reaction Status Date / Time omeprazole [OMEPRAZOLE] Allergy Unknown Nausea and Verified 07/17/23 00:44 Vomiting aspirin AdvReac Nausea and Verified 07/17/23 00:44 Vomiting ibuprofen AdvReac Nausea and Verified 07/17/23 00:44 Vomiting pantoprazole AdvReac Nausea and Verified 07/17/23 00:44 Vomiting Active Medications: Current Medications Acetaminophen (Acetaminophen 325 Mg Tablet) 650 mg PO Q6H PRN PRN Reason: Pain, Mild (Pain Scale 1-3) Lactated Ringer's (Lr) 1,000 mls @ 100 mls/hr IVCONT .Q10H [facility] Last Admin: 07/17/23 05:20 Dose: 100 mls/hr Ondansetron HCl (Ondansetron Hcl 4 Mg/2 Ml Vial) 4 mg IVPUSH Q8H PRN PRN Reason: Nausea and Vomiting Sodium Chloride (0.9 % Sodium Chloride Flush 3 Ml Syringe) 3 ml IVFLUSH QSHIFT [facility] Home Medications Medication Instructions Recorded Confirmed Last Taken Type Vivitrol 06/13/20 Unknown History Vivitrol 06/13/20 Unknown History Physical Exam 2 Vital Signs and Narrative: Vital Signs: Last Vital Signs Temp 98.2 F 07/17/23 03:41 Pulse 56 07/17/23 03:41 Resp 18 07/17/23 03:41 BP 135/83 07/17/23 03:41 Pulse Ox 95 07/17/23 03:41 O2 Del Method Room Air 07/17/23 03:41 BMI result Body Mass Index 22.4 Const: General: cooperative and no acute distress O rientation/consciousness: patient oriented x3 Eyes: General: appearance normal, both eyes and all related structures Resp: Effort & Inspection: normal respiratory effort Auscultation: clear to auscultation bilaterally Cardio: Rate: regular rate Rhythm: regular rhythm GI: Other: Abdomen is soft but does have guarding in the lower abdominal quadrants, no rebound, Skin: General skin exam: no rashes or lesions noted Neuro: General: patient oriented x3 Cognition (Neuro): normal cognition Extrem: General: Yes normal to inspection and Yes no pedal edema Results Labs 07/17/23 01:27 07/17/23 01:27 Labs: Laboratory Results - last 24 hr 07/17/23 07/17/23 01:27 03:46 MCV 82.2 MCH 28.3 MCHC 34.4 RDW 14.4 Plt Count 231 MPV 11.1 Immature Gran % (Auto) 0.2 Neut % (Auto) 67.1 Lymph % (Auto) 21.8 [place] % (Auto) 8.7 Eos % (Auto) 1.5 Baso % (Auto) 0.7 Lymph # (Auto) 1.8 [place] # (Auto) 0.7 Eos # (Auto) 0.1 Baso # (Auto) 0.1 Abs Immat Gran (auto) 0.02 Absolute Neuts (auto) 5.5 Absolute Nucleated RBC 0.000 Nucleated RBC % (auto) 0.0 Anion Gap 11 L Estim Creat Clear Calc 82.9 Estimated GFR > 60 Random Glucose 96 Calcium 9.5 Total Bilirubin 1.0 Direct Bilirubin 0.3 AST 27 ALT 18 Alkaline Phosphatase 83 Total Protein 7.1 Albumin 4.2 Lipase 11 Urine Color Yellow Urine Appearance Clear Urine pH 7.0 Ur Specific [place] 1.015 Urine Protein Negative Urine Glucose (UA) Negative Urine Ketones Negative Urine Blood Negative Urine Nitrite Negative Ur Leukocyte Esterase Negative Imaging Radiologist's Impressions: Impressions Abdomen/Pelvis CT 07/17/23 01:50 IMPRESSION: No acute findings identified in the abdomen/pelvis. Assessment and Plan (1) Intractable vomiting: Status: Acute (2) Gastroenteritis: Status: Acute (3) Abdominal pain: Qualifiers: Abdominal location: lower abdomen, unspecified Qualified Code(s): R 10.30 - Lower abdominal pain, unspecified Status: Acute (4) Diarrhea: Qualifiers: Diarrhea type: unspecified type Qualified Code(s): R19.7 - Diarrhea, unspecified Status: Acute Plan This is a 62-year-old male past medical history of PTSD, anxiety, history of gastritis and alcohol abuse comes into the hospital with complaints of abdominal pain, diarrhea and nausea and vomiting # intractable nausea vomiting, diarrhea - possibly secondary to gastroenteritis - GI consulted as patient reported some blood - Denise p.r.n. # abdominal pain - possibly secondary to acute gastroenteritis - will rule out C diff, GI panel pending - stool occult blood pending patient's report of blood in the diarrhea - GI consulted - will keep NPO # diarrhea - loss C diff, no recent antibiotic use - GI panel pending # PTSD/depression anxiety - continue mood stabilizer # gastritis - in allergic to PPI - continue famotidine DVT prophylaxis: SCDs Patient's need for further evaluation by gastroenterology as well as intractable nausea vomiting patient require minimum 2 nights inpatient hospital stay for further management and monitoring Quality Stroke Does the patient have a stroke diagnosis?: No VTE Prior VTE?: No VTE Risk Level:: Medical - moderate - high VTE Device Contraindication: N/A - Device Ordered VTE Drug Contraindication: Treatment Not Indicated
[2023-07-17 06:09] LABS: MANUAL DIFF FLAG NO
--- NOTE | 2023-07-17 06:23 | PC.NURSE ---
This science writer assumed care of this Pt at 0330. Pt A&Ox4, reports 02/28 intermittent lower ABD pain with nausea. ABD tender to touch. Reports report lose stools. Pt medicated per OCT. Pt ambulated to BR independently with steady gait, but reports he uses a cane. Pt had an episode of felling weak while in the BR, got back to bed safely.
[2023-07-17 06:28] LABS: Anion Gap 11 (12-20); Blood Urea Nitrogen 9 mg/dL (9-16); Calcium 8.9 mg/dL (8.4-10.2); Carbon Dioxide 25 mmol/L (22-29); Chloride 109 mmol/L (96-108); Estimated Glomerular Filt Rate > 60; Glucose Random 95 mg/dL (60-115); Potassium 3.7 mmol/L (3.3-5.1); Sodium 141 mmol/L (135-145)
[2023-07-17 06:39] LABS: Basophils Absolute Auto 0.1 X10*3/uL (0.0-0.2); Basophils Percent Auto 0.6 % (0-2); Eosinophils Absolute Auto 0.1 X10*3/uL (0.0-0.4); Eosinophils Percent Auto 1.2 % (0-4); Hematocrit 42.1 % (42.0-52.0); Hemoglobin 14.4 g/dl (14.0-18.0); Imm Gran Abs Auto 0.03 X10*3/uL (0.00-0.03); Imm Gran Pct Auto 0.4 % (0.0-0.4); Lymphocytes Absolute Auto 1.4 X10*3/uL (1.2-4.9); Lymphocytes Percent Auto 17.1 % (20-40); Mean Corpuscular HGB Conc 34.2 g/dl (31.0-36.0); Mean Corpuscular Hemoglobin 28.5 pg (27.0-33.0); Mean Corpuscular Volume 83.2 fL (80.0-98.0); Mean Platelet Volume 11.9 fL (9.4-12.4); Monocytes Absolute Auto 0.7 X10*3/uL (0.1-1.2); Monocytes Percent Auto 8.2 % (2-11); Neutrophils Absolute Auto 5.9 x10*3/uL (2.0-8.3); Neutrophils Percent Auto 72.5 % (45-73); Platelet Count 207 X10*3/uL (160-400); Red Blood Count 5.06 X10*6/uL (4.60-5.80); Red Cell Distribution Width 14.2 % (11.0-16.0); White Blood Count 8.1 X10*3/uL (4.8-10.8)
--- NOTE | 2023-07-17 07:03 | PM.EVENT ---
Event Note Date of Service: 07/17/23 Event Note: admitted this morning with diarrhea, negative ct, nl wbc, no fever, cdif and gi panel penel pending. Suspect viral gastroenteritis, conservative management at this time, hydration, Time Spent With Patient Time: Total time managing care of this patient today ____ minutes.
--- NOTE | 2023-07-17 07:38 | PC.NURSE ---
patient appears to be asleep, respirations equal and unlabored, patient appears to be in no distress. LR running at 100ml/hr
--- NOTE | 2023-07-17 07:46 | P.CNGI_ITS ---
History of Present Illness Data of Consult Service Date: 07/17/23 Requesting physician: Yonis Anderson Primary Care Provider: Unknown Physician HPI Reason for consult: nausea, emesis 62-year-old male past medical history of gastritis, PTSD, anxiety, alcohol abuse being assessed for nausea, abdominal pain Patient has hd 1-2 d hx of nausea and several episodes of blood tinged vomiting with lower abdominal crampy pain 10/10 without excaerbating or relieving factors and diarrhea stools. He had thanksgiving dinner night before and thinks the salad soaked with wine may have triggered this. he has been avoiding alcohol for a long time now and taking vivitrol for alcohol addiction Denies any fever, no chills, no chest pain, and no lower extremity edema. No headache or change in vision, no numbness weakness or tingling. denies sick contacts. Does endorse seeing blood in urine on and off, urine at bedisde looks normal CT of the abdomen pelvic shows no significant abnormality LABS: HGb, WCC nml, lipase and LFT nml, UA nml Review of Systems 2 Review of Systems: Constitutional : No Weight loss, No Fever, No Chills ENT/Mouth : No sore throat, No Rhinorrhea Eyes: No Swelling, No Redness Cardiovascular : No Chest Pain, No SOB, No Edema Respiratory : No Cough, No Sputum, No Wheezing Gastrointestinal : see HPI Genitourinary : NO Dysuria, No Urinary Frequency, + Hematuria, No Urgency Musculoskeletal : No joint pain, No Myalgias, No Joint Swelling Skin : No Skin Lesions, No rash Neuro : No Weakness, No Numbness, No Dizziness, No Headache Psych : No Anxiety/Panic, No Depression Heme/Lymph: No Bruising, No Lymphadenopathy Endocrine : No Polyuria, No Polydipsia All other systems reviewed and are negative. [facility] Past Medical History Medical History ETOH abuse Gastritis Anxiety PTSD (post-traumatic stress disorder) MDD (major depressive disorder), recurrent episode, moderate Gastritis ETOH abuse Anxiety PTSD (post-traumatic stress disorder) Family History Pertinent family history: no fh of crc Social History Household Members: None Household Members Other:: Pt [place] Housing: Apartment Housing Other:: Retired Home Do you presently have visiting nurse or other home services: Yes ([employer] 2x week) Alcohol intake: former Patient Tobacco Use Status: Former Tobacco user Tobacco use type: Cigarette Second Hand Smoke Exposure: No Substance Use Type: Marijuana service: Yes Sexual orientation: Did not discuss Meds Allergies Allergy/AdvReac Type Severity Reaction Status Date / Time omeprazole [OMEPRAZOLE] Allergy Unknown Nausea and Verified 07/17/23 00:44 Vomiting aspirin AdvReac Nausea and Verified 07/17/23 00:44 Vomiting ibuprofen AdvReac Nausea and Verified 07/17/23 00:44 Vomiting pantoprazole AdvReac Nausea and Verified 07/17/23 00:44 Vomiting Active Medications: Current Medications Acetaminophen (Acetaminophen 325 Mg Tablet) 650 mg PO Q6H PRN PRN Reason: Pain, Mild (Pain Scale 1-3) Divalproex Sodium (Divalproex Sodium Er 250 Mg Tab.Er.24h) 250 mg PO BEDTIME [place] Divalproex Sodium (Divalproex Sodium Er 500 Mg Tab.Er.24h) 500 mg PO DAILY [facility] Famotidine (Famotidine 20 Mg Tablet) 20 mg PO BID [facility] Lactated Ringer's (Lr) 1,000 mls @ 100 mls/hr IVCONT .Q10H [facility] Last Admin: 07/17/23 05:20 Dose: 100 mls/hr Ondansetron HCl (Ondansetron Hcl 4 Mg/2 Ml Vial) 4 mg IVPUSH Q8H PRN PRN Reason: Nausea and Vomiting Quetiapine Fumarate (Quetiapine Fumarate 50 Mg Tablet) 50 mg PO TID [facility] Quetiapine Fumarate (Quetiapine Fumarate 50 Mg Tablet) 150 mg PO BEDTIME [facility] Sodium Chloride (0.9 % Sodium Chloride Flush 3 Ml Syringe) 3 ml IVFLUSH QSHIFT [facility] Home Medications Medication Instructions Recorded Confirmed Last Taken Type ammonium lactate 12 % lotion 1 appl topical DAILY 07/17/23 07/17/23 Unknown History atorvastatin 20 mg tablet 10 mg PO BEDTIME 07/17/23 07/17/23 Unknown History fluticasone propionate 50 1 spray intranasal DAILY 07/17/23 07/17/23 Unknown History mcg/actuation nasal spray,suspension lansoprazole 15 mg capsule,delayed 15 mg PO DAILY@0630 07/17/23 07/17/23 Unknown History release lidocaine 5 % topical patch 1 patch topical DAILY 07/17/23 07/17/23 Unknown History naltrexone microspheres 380 mg 380 mg IM Q4W 07/17/23 07/17/23 07/01/23 History intramuscular suspension,extended release (Vivitrol) ondansetron HCl 4 mg tablet 4 mg PO Q8H PRN nausea 07/17/23 07/17/23 Unknown History prazosin 2 mg capsule 2 mg PO BEDTIME 07/17/23 07/17/23 Unknown History quetiapine 25 mg tablet 25 mg PO BID@0900,1500 07/17/23 07/17/23 Unknown History quetiapine 25 mg tablet 50 mg PO BEDTIME 07/17/23 07/17/23 Unknown History sodium chloride 0.65 % nasal spray 1 spray intranasal DAILY 07/17/23 07/17/23 Unknown History aerosol (Saline Nasal) Physical Exam 2 Vital Signs: Vital Signs: Last Vital Signs Temp 98.2 F 07/17/23 06:01 Pulse 53 07/17/23 06:01 Resp 16 07/17/23 06:01 BP 114/74 07/17/23 06:01 Pulse Ox 96 07/17/23 06:01 O2 Del Method Room Air 07/17/23 06:01 BMI result Body Mass Index 22.4 EXAM: GENERAL: The patient is well developed and nontoxic. VITAL SIGNS:see workflow HEENT: Nonicteric sclerae, PERRLA, EOMI. Oropharynx clear. Moist mucous membranes. Conjunctivae appear well perfused. No thyroid mass. CHEST: Chest wall is nontender. HEART: Regular rate and rhythm without murmurs. LUNGS: Clear to auscultation bilaterally. ABDOMEN: Soft, positive bowel sounds, tender suprapubic area, no organomegaly.no flank tenderness SKIN: No rash, no excessive bruising, petechiae, or purpura. NEUROLOGIC: Cranial nerves II-XII intact without motor/sensory deficit. Psych: Appearance: grossly normal Results Labs 07/17/23 05:42 07/17/23 05:42 Labs: Short CBC 07/17/23 07/17/23 Range/Units 01:27 05:42 WBC 8.2 8.1 (4.8-10.8) X10*3/uL Hgb 15.2 14.4 (14.0-18.0) g/dl Hct 44.2 42.1 (42.0-52.0) % Plt Count 231 207 (160-400) X10*3/uL BMP 07/17/23 07/17/23 01:27 05:42 Sodium 142 141 Potassium 4.0 3.7 Chloride 107 109 H Carbon Dioxide 28 25 BUN 10 9 Creatinine 1.02 0.94 Calcium 9.5 8.9 D Liver Function 07/17/23 Range/Units 01:27 Total Bilirubin 1.0 (0.0-1.0) mg/dL Direct Bilirubin 0.3 (0.0-0.5) mg/dL AST 27 (5-37) U/L ALT 18 (0-40) U/L Alkaline Phosphatase 83 (39-117) U/L Albumin 4.2 (3.5-5.0) g/dL Urine 07/17/23 Range/Units 03:46 Urine Color Yellow Urine Appearance Clear Urine pH 7.0 (5.0-9.0) Ur Specific [place] 1.015 (1.005-1.025) Urine Protein Negative (Neg-Trace) mg/dL Urine Glucose (UA) Negative (Negative) mg/dL Imaging CT scan - abdomen: Attestation: I personally reviewed and interpreted this imaging study as follows: (degen spinal disease) Assessment and Plan (1) Gastroenteritis: Status: Acute Plan 1/ patients sx are most compatible with acute gastroenteritis, neg labs and UA, imaging are v reassuring at this time PLAN: 1/ send stool samples as planned 2/ fluids and hydration, bentyl for pain or low dose nsaid vs tylenol 3/ if ongoing sx then EGD and US abdomen, Procedures Date of Service Date of Service: 07/17/23
[2023-07-17] MEDS: Famotidine 20 MG TABLET PO ×2 (08:41→22:10)
[2023-07-17] MEDS: QUEtiapine Fumarate 50 MG TABLET PO ×3 (08:42→22:10)
[2023-07-17] MEDS: Divalproex Sodium ER 500 MG TAB.ER.24H PO (08:42)
--- NOTE | 2023-07-17 09:23 | PC.NURSE ---
patient has remained nausea and vomiting free, drank water this morning and had no episodes of vomiting after. resting comfortably in bed, respirations equal and unlabored
--- NOTE | 2023-07-17 10:37 | PHA.MEDREC ---
Addendum entered by Mary Kate [facility] 07/17/23 11:22: Med rec updated. seroquel and depakote already continued from overnight but incorrect. Notified Dr. Alamo of the changes and additions to med rec. Original Note: Pharmacy Consult ? Medication Reconciliation Pharmacy has completed the medication reconciliation. [facility] and [facility].
--- NOTE | 2023-07-17 16:28 | PC.NURSE ---
patient has been resting quietly in bed for majority of day, able to make needs known via call stringer. patient has 100 lr running via iv in R AC. respirations equal and unlabored, skin dry and intact
[2023-07-17] MEDS: Acetaminophen 325 MG TABLET 650 MG PO (16:58)
[2023-07-17] MEDS: 0.9 % Sodium Chloride Flush 3 ML SYRINGE IVFLUSH (20:02)
[2023-07-17] MEDS: Divalproex Sodium ER 250 MG TAB.ER.24H PO (22:11)
[2023-07-17] MEDS: Prazosin HCL 1 MG CAPSULE 2 MG PO (22:11)
[2023-07-17] MEDS: Atorvastatin Calcium 10 MG TABLET PO (22:11)
[2023-07-18] MEDS: Lactated Ringers 1,000 ML 100 ML IVCONT (01:43)
[2023-07-18 04:00] VITALS: BP 140/82; PULSE 61; RESP 16; TEMP 36.7; O2SAT 96
[2023-07-18 07:20] VITALS: BP 136/76; PULSE 56; RESP 18; TEMP 36.4; O2SAT 95
--- NOTE | 2023-07-18 08:40 | MHC.CM.PN ---
CM met with Patient at bedside and addressed POE with him, providing Patient with the original and a copy has been placed on the chart. Patient lives alone in an apartment and he uses a cane, walker and a scooter to assist with mobility. Patient has [facility] [employer] 2X/week and home/resume said services is the goal. CM has initiated and will follow for dc planning. PCP is Dr. Stewart from the [facility] in [place] and Patient's HCP is his Sister,Nory.
[2023-07-18] MEDS: 0.9 % Sodium Chloride Flush 3 ML SYRINGE IVFLUSH (09:52)
[2023-07-18] MEDS: Famotidine 20 MG TABLET PO (09:52)
[2023-07-18] MEDS: QUEtiapine Fumarate 25 MG TABLET PO (09:52)
[2023-07-18 11:14] VITALS: BP 155/84; PULSE 53; RESP 18; TEMP 36.1; O2SAT 98
[2023-07-18] MEDS: Fluticasone Propionate Nasal 16 GM SPRAY 1 SPRAY NOSTRIL-B (12:38)
[2023-07-18] MEDS: Ammonium Lactate 12 % Lotion 226 GM BOTTLE 1 APPL TOPICAL (12:38)
--- NOTE | 2023-07-18 13:47 | P.DS_ITS ---
DS: Providers Provider Date of Service: 07/18/23 Date of admission: 07/17/23 04:50 Date of discharge: 07/18/23 Primary care physician: Louie Stewart DO Consults: 07/17/23 04:50 Consult to Gastroenterology Routine Consulting Provider: Malcom Wells Reason for consultation: abd pain, GI bleed Has provider been notified: No DS: Diagnosis Discharge Diagnosis (1) Gastroenteritis: Status: Acute DS: Summary Hospital Course Hospital Course: from admission H+P by hospitalist Yonis Anderson, 07/17/23: This is a 62-year-old male past medical history of gastritis, PTSD, anxiety, alcohol abuse comes into the hospital with complaints of abdominal pain. Patient reports that the abdominal pain started the day prior to presentation, localized to the lower abdomen, associated with nausea and several episodes of vomiting. He has had diarrhea close to 20 times per patient, reports some blood in the diarrhea, no previous similar episode. Denies any fever, no chills, no chest pain, no urinary symptoms and no lower extremity edema. No headache or change in vision, no numbness weakness or tingling. On arrival To the ED patient hemodynamically stable slightly elevated blood pressure Labs are significant for WBC count of 8.2, labs otherwise unremarkable At this time patient tells me that he has not been drinking alcohol CT of the abdomen pelvic shows no significant abnormality Patient has had intractable nausea vomiting, will be admitted for further management The patient was admitted to the hospitalist service. Symptoms resolved with IV fluid hydration and antiemetics. There was no further diarrhea. Diet was gradually advanced. Likely had viral gastroetneritis. He was discharged with instructions to continue to advance diet and use ondansetron as needed for nausea and vomiting. He was also counseled to avoid THC as it may worsen nausea and vomiting in some patients. Time Attestation Total time managing care of this patient today: 25 mintues. Discharge coordination time: Less than 30 minutes Quality: Safe Use of Opioids Does Pt have an Active Cancer Diagnosis on the Problem List?: No Quality: Stroke Does the patient have a stroke diagnosis?: No Physical Exam Vital Signs: Vital Signs: Last Vital Signs Temp 97 F 07/18/23 11:14 Pulse 53 07/18/23 11:14 Resp 18 07/18/23 11:14 BP 155/84 H 07/18/23 11:14 Pulse Ox 98 07/18/23 11:14 O2 Del Method Room Air 07/18/23 11:14 BMI result Body Mass Index 22.4 Gen: in no acute distress HEENT: sclera anicteric, moist mucus membranes Neck: supple Lungs: clear to auscultation bilaterally Heart: regular rate and rhythm, no murmurs Abd: soft, non-tender, non-distended Ext: no edema Skin: warm/well-perfused Neuro: alert and oriented x3, no focal findings Psych: appropriate affect DS: Data Data Completed and Pending Completed studies during hospitalization [Text1]: Laboratory Results WBC 8.1 X10*3/uL (4.8-10.8) 07/17/23 05:42 RBC 5.06 X10*6/uL (4.60-5.80) 07/17/23 05:42 Hgb 14.4 g/dl (14.0-18.0) 07/17/23 05:42 Hct 42.1 % (42.0-52.0) 07/17/23 05:42 MCV 83.2 fL (80.0-98.0) 07/17/23 05:42 MCH 28.5 pg (27.0-33.0) 07/17/23 05:42 MCHC 34.2 g/dl (31.0-36.0) 07/17/23 05:42 RDW 14.2 % (11.0-16.0) 07/17/23 05:42 Plt Count 207 X10*3/uL (160-400) 07/17/23 05:42 MPV 11.9 fL (9.4-12.4) 07/17/23 05:42 Immature Gran % (Auto) 0.4 % (0.0-0.4) 07/17/23 05:42 Neut % (Auto) 72.5 % (45-73) 07/17/23 05:42 Lymph % (Auto) 17.1 % (20-40) L 07/17/23 05:42 [place] % (Auto) 8.2 % (2-11) 07/17/23 05:42 Eos % (Auto) 1.2 % (0-4) 07/17/23 05:42 Baso % (Auto) 0.6 % (0-2) 07/17/23 05:42 Lymph # (Auto) 1.4 X10*3/uL (1.2-4.9) 07/17/23 05:42 [place] # (Auto) 0.7 X10*3/uL (0.1-1.2) 07/17/23 05:42 Eos # (Auto) 0.1 X10*3/uL (0.0-0.4) 07/17/23 05:42 Baso # (Auto) 0.1 X10*3/uL (0.0-0.2) 07/17/23 05:42 Abs Immat Gran (auto) 0.03 X10*3/uL (0.00-0.03) 07/17/23 05:42 Absolute Neuts (auto) 5.9 x10*3/uL (2.0-8.3) 07/17/23 05:42 Absolute Nucleated RBC 0.000 X10*3/uL (0.0-0.012) 07/17/23 05:42 Nucleated RBC % (auto) 0.0 /100WBC (0.0-0.2) 07/17/23 05:42 Sodium 141 mmol/L (135-145) 07/17/23 05:42 Potassium 3.7 mmol/L (3.3-5.1) 07/17/23 05:42 Chloride 109 mmol/L (96-108) H 07/17/23 05:42 Carbon Dioxide 25 mmol/L (22-29) 07/17/23 05:42 Anion Gap 11 (12-20) L 07/17/23 05:42 BUN 9 mg/dL (9-16) 07/17/23 05:42 Creatinine 0.94 mg/dL (0.5-1.4) 07/17/23 05:42 Estim Creat Clear Calc 90.0 07/17/23 05:42 Estimated GFR > 60 07/17/23 05:42 Random Glucose 95 mg/dL (60-115) 07/17/23 05:42 Calcium 8.9 mg/dL (8.4-10.2) D 07/17/23 05:42 Total Bilirubin 1.0 mg/dL (0.0-1.0) 07/17/23 01:27 Direct Bilirubin 0.3 mg/dL (0.0-0.5) 07/17/23 01:27 AST 27 U/L (5-37) 07/17/23 01:27 ALT 18 U/L (0-40) 07/17/23 01:27 Alkaline Phosphatase 83 U/L (39-117) 07/17/23 01:27 Total Protein 7.1 g/dL (6.5-8.0) 07/17/23 01:27 Albumin 4.2 g/dL (3.5-5.0) 07/17/23 01:27 Lipase 11 U/L (8-78) 07/17/23 01:27 Urine Color Yellow 07/17/23 03:46 Urine Appearance Clear 07/17/23 03:46 Urine pH 7.0 (5.0-9.0) 07/17/23 03:46 Ur Specific [place] 1.015 (1.005-1.025) 07/17/23 03:46 Urine Protein Negative mg/dL (Neg-Trace) 07/17/23 03:46 Urine Glucose (UA) Negative mg/dL (Negative) 07/17/23 03:46 Urine Ketones Negative mg/dL (Negative) 07/17/23 03:46 Urine Blood Negative (Negative) 07/17/23 03:46 Urine Nitrite Negative (Negative) 07/17/23 03:46 Ur Leukocyte Esterase Negative (Negative) 07/17/23 03:46 Impressions Abdomen/Pelvis CT 07/17/23 01:50 IMPRESSION: No acute findings identified in the abdomen/pelvis. Discharge Plan Discharge Patient Disposition: Home, Self-Care Discharge Diagnosis: acute gastroenteritis Referrals: Louie Stewart DO [Primary Care Provider] - 1 Week Discharge Medications: Continued divalproex 250 mg Tablet Extended Release 24 Hr 250 mg PO BEDTIME Qty: 0 0RF quetiapine 25 mg Tablet 25 mg PO BID@0900,1500 ammonium lactate 12 % Lotion 1 appl TOPICAL DAILY Rx Instructions: apply to bilateral feet lidocaine 5 % Adhesive Patch,Medicated 1 patch TOPICAL DAILY Rx Instructions: leave on most painful area for up to 12 hrs lansoprazole 15 mg Capsule,Delayed Release(Dr/Ec) 15 mg PO DAILY@0630 fluticasone propionate 50 mcg/actuation [place],Suspension 1 spray INTRANASAL DAILY Rx Instructions: administer into each nostril prazosin 2 mg Capsule 2 mg PO BEDTIME Saline Nasal 0.65 % Aerosol,[place] 1 spray INTRANASAL DAILY Vivitrol 380 mg Suspension,Extended Rel Recon 380 mg IM Q4W quetiapine 25 mg Tablet 50 mg PO BEDTIME atorvastatin 20 mg Tablet 10 mg PO BEDTIME ondansetron HCl 4 mg tablet 4 mg PO Q8H PRN (Reason: nausea) Qty: 12 0RF Discharge Orders: Discharge Order (Routine); Ordered 07/18/23 Ordered By: Андрей Montemayor Diet: Advance to usual diet Activity on Discharge: As tolerated Stand Alone Forms: Patient Portal Discharge page Care Plan Goals: recovery from gastroenteritis Health Concerns: gastroenteritis Plan of Treatment: gradually advance diet, use ondansetron as needed for nausea/vomiting, avoid cannabis Please follow up with your primary care doctor within 1 week. Return to the hospital if you experience recurrent or worsening symptoms. Assessment: See Discharge Summary. Patient Instructions: Gastroenteritis (ED)
--- NOTE | 2023-07-18 13:47 | MHC.CM.PN ---
Patient has been medically cleared for dc to home today,self care.
== END 2023-07-18 15:35 | disposition home or self-care (01) ==
LOC: HO.ED 04:30 → HO.EDOVER 04:54 → HO.IMC 15:57
PROVIDERS: Admitting Provider Internal Medicine; Emergency Provider Emergency Medicine; PCP Family Medicine; Visit Provider Family Medicine
DX: R11.2 Nausea with vomiting, unspecified (principal); K52.9 Noninfective gastroenteritis and colitis, unspecified; R10.30 Lower abdominal pain, unspecified; F43.10 Post-traumatic stress disorder, unspecified; Z79.899 Other long term (current) drug therapy
CPT/HCPCS: 36415; 74176; 80048; 80076; 81003; 83690; 85025; 96361; 96374; 96375; 96376; 99222; 99285; J2405; J7120

== ENCOUNTER → 2023-07-17 04:50 | Outpatient (BNV) | payer MEDICARE, MEDICAID, SELFPAY | PROVIDERS: Admitting Provider Internal Medicine; Emergency Provider Emergency Medicine; Visit Provider Internal Medicine | DX: K52.9 Noninfective gastroenteritis and colitis, unspecified (principal) | CPT/HCPCS: 99222; 99238; 99499 ==

== ENCOUNTER → 2023-07-17 04:50 | Outpatient (BNV) | payer MEDICARE, MEDICAID, SELFPAY | PROVIDERS: Admitting Provider Internal Medicine; Emergency Provider Emergency Medicine; Visit Provider Internal Medicine Gastroenterology | DX: K52.9 Noninfective gastroenteritis and colitis, unspecified (principal) | CPT/HCPCS: 99223 ==

== ENCOUNTER 2023-09-13 00:52 | Emergency (ER) | payer OTHER, SELFPAY ==
--- NOTE | 2023-09-13 | ECG_ITS ---
Test Reason : CHEST PAIN Blood Pressure : / mmHG Vent. Rate : 050 BPM Atrial Rate : 050 BPM P-R Int : 198 ms QRS Dur : 086 ms QT Int : 432 ms P-R-T Axes : 070 050 045 degrees QTc Int : 393 ms Sinus bradycardia Minimal voltage criteria for LVH, may be normal variant ( Sokolow-Nuno ) Borderline ECG When compared with ECG of 09-NOV-2022 03:49, No significant change was found Referred By: Generic ED Physician Electronically Signed By:Ghulam Dumont
--- NOTE | ~2023-09-13 | XR_ITS ---
EXAMINATION: XR CHEST CLINICAL INFORMATION: Chest pain COMPARISON: 06/23/2021 TECHNIQUE: Frontal view of the chest was obtained. FINDINGS: The lungs are clear with no focal consolidation. No evidence of pneumothorax, pulmonary edema, or pleural effusions. The cardiomediastinal silhouette is unremarkable. No acute osseous findings. Degenerative change noted at the right glenohumeral joint. XR/XR chest 1V IMPRESSION: No acute cardiopulmonary findings.
[2023-09-13 00:59] VITALS: BP 157/98; BP 159/86; PULSE 53; PULSE 59; RESP 15; TEMP 36.9; O2SAT 99; BMI 24.1
--- NOTE | 2023-09-13 01:12 | ED.CHESTPAIN ---
HPI - Chest Pain General Chief Complaint: Chest Pain Stated Complaint: CHEST PAIN Time Seen by Provider: 09/13/23 01:12 Source: patient Mode of arrival: EMS Limitations: no limitations History of Present Illness HPI narrative: Patient's history of PTSD/depression was in a group meeting earlier today after he came back from group meeting started nauseated vomited few times with chills and body aches occasional cough vomited about 5 times since he came home no significant abdominal pain Related Data Home Medications Medication Instructions Recorded Confirmed ammonium lactate 12 % lotion 1 appl topical DAILY 07/17/23 07/17/23 atorvastatin 20 mg tablet 10 mg PO BEDTIME 07/17/23 07/17/23 fluticasone propionate 50 1 spray intranasal DAILY 07/17/23 07/17/23 mcg/actuation nasal spray,suspension lansoprazole 15 mg capsule,delayed 15 mg PO DAILY@0630 07/17/23 07/17/23 release lidocaine 5 % topical patch 1 patch topical DAILY 07/17/23 07/17/23 naltrexone microspheres 380 mg 380 mg IM Q4W 07/17/23 07/17/23 intramuscular suspension,extended release (Vivitrol) prazosin 2 mg capsule 2 mg PO BEDTIME 07/17/23 07/17/23 quetiapine 25 mg tablet 25 mg PO BID@0900,1500 07/17/23 07/17/23 quetiapine 25 mg tablet 50 mg PO BEDTIME 07/17/23 07/17/23 sodium chloride 0.65 % nasal spray 1 spray intranasal DAILY 07/17/23 07/17/23 aerosol (Saline Nasal) Previous Rx's Medication Instructions Recorded divalproex 250 mg tablet,extended 250 mg PO BEDTIME #0 tabs 06/26/21 release 24 hr ondansetron HCl 4 mg tablet 4 mg PO Q8H PRN nausea #12 tabs 07/18/23 ondansetron 4 mg disintegrating 4 mg PO Q6-8H PRN nausea and 09/13/23 tablet vomiting #7 tabs Allergies Allergy/AdvReac Type Severity Reaction Status Date / Time omeprazole [OMEPRAZOLE] Allergy Unknown Nausea and Verified 07/17/23 00:44 Vomiting aspirin AdvReac Nausea and Verified 07/17/23 00:44 Vomiting ibuprofen AdvReac Nausea and Verified 07/17/23 00:44 Vomiting pantoprazole AdvReac Nausea and Verified 07/17/23 00:44 Vomiting Review of Systems Review of Systems: Yes all other systems are reviewed and are negative [facility] Past Medical History Medical History ETOH abuse Gastritis Anxiety PTSD (post-traumatic stress disorder) MDD (major depressive disorder), recurrent episode, moderate Gastritis ETOH abuse Anxiety PTSD (post-traumatic stress disorder) Social History Social History Household Members: None Household Members Other:: Pt reports he lives in [place] Housing: Apartment Housing Other:: Retired Home Do you presently have visiting nurse or other home services: Yes ([employer] 2x week) Alcohol intake: former Patient Tobacco Use Status: Current everyday Tobacco user Tobacco use type: Cigarette Smoked in Last 30 Days: Yes Second Hand Smoke Exposure: No Use of substances other than those prescribed or required for medical reasons: Yes Substance Use Type: Marijuana Substance Use Frequency Other:: every ohter day Advance Directives: No Advance Directives Information Provided: Yes service: Yes Sexual orientation: Did not discuss Physical Exam Vital Signs: Vital Signs: Last Vital Signs Temp 98.4 F 09/13/23 00:59 Pulse 53 09/13/23 00:59 Resp 15 09/13/23 00:59 BP 157/98 H 09/13/23 00:59 Pulse Ox 99 09/13/23 00:59 O2 Del Method Room Air 09/13/23 00:59 BMI result Body Mass Index 24.1 Appearance: Alert. Oriented X3. No acute distress. Eyes: PERRLA, No Nystagmus ENT: Pharynx normal. Oral Mucosa moist Neck: Normal inspection. Neck supple. CVS: Normal heart rate and rhythm. Pulses normal. Respiratory: No respiratory distress. Equal air entry bilateral, no wheezing/rales/rhonchi Abdomen: Soft and nontender. Bowel sounds are present, no mass palpable, no CVA tenderness Skin: Skin warm and dry. Normal skin color. Normal skin turgor. Extremities: No lower extremity edema. No calf tenderness Neuro: Oriented X 3. No motor deficit. No sensory deficit.No cerebellar signs , cranial nerves II-XII intact Medications Administered Discontinued Medications Generic Name Dose Route Start Last Admin Trade Name Freq PRN Reason Stop Dose Admin Sodium Chloride 1,000 mls @ 999 mls/hr 09/13/23 01:33 09/13/23 02:21 Ns IV 09/13/23 02:33 999 mls/hr .Q1H1M ONE Administration Ketorolac Tromethamine 30 mg 09/13/23 01:34 09/13/23 02:21 Ketorolac Tromethamine 30 Mg/Ml Vial IVPUSH 09/13/23 01:35 30 mg ONCE ONE Administration Ondansetron HCl 4 mg 09/13/23 01:33 09/13/23 02:21 Ondansetron Hcl 4 Mg/2 Ml Vial IVPUSH 09/13/23 01:34 4 mg ONCE ONE Administration Medical Decision Making Medical Decision Making MDM Narrative: Patient with mild GI symptoms likely viral, was given IV fluids and Zofran better taking p.o. fluids Differential Diagnosis Differential Diagnoses: The differential diagnosis associated with the presentation includes Viral gastroenteritis/COVID/flu Lab Data [facility] Lab Attestation statement: I reviewed the patient's lab results. 09/13/23 01:24 09/13/23 01:24 Labs: Lab Results 09/13/23 Range/Units 01:24 WBC 10.3 (4.8-10.8) X10*3/uL RBC 5.41 (4.60-5.80) X10*6/uL Hgb 15.4 (14.0-18.0) g/dl Hct 44.8 (42.0-52.0) % MCV 82.8 (80.0-98.0) fL MCH 28.5 (27.0-33.0) pg MCHC 34.4 (31.0-36.0) g/dl RDW 13.9 (11.0-16.0) % Plt Count 208 (160-400) X10*3/uL MPV 11.0 (9.4-12.4) fL Immature Gran % (Auto) 0.4 (0.0-0.4) % Neut % (Auto) 78.1 H (45-73) % Lymph % (Auto) 13.7 L (20-40) % [place] % (Auto) 5.6 (2-11) % Eos % (Auto) 1.4 (0-4) % Baso % (Auto) 0.8 (0-2) % Lymph # (Auto) 1.4 (1.2-4.9) X10*3/uL [place] # (Auto) 0.6 (0.1-1.2) X10*3/uL Eos # (Auto) 0.1 (0.0-0.4) X10*3/uL Baso # (Auto) 0.1 (0.0-0.2) X10*3/uL Abs Immat Gran (auto) 0.04 H (0.00-0.03) X10*3/uL Absolute Neuts (auto) 8.0 (2.0-8.3) x10*3/uL Absolute Nucleated RBC 0.000 (0.0-0.012) X10*3/uL Nucleated RBC % (auto) 0.0 (0.0-0.2) /100WBC Sodium 144 (135-145) mmol/L Potassium 4.2 (3.3-5.1) mmol/L Chloride 107 (96-108) mmol/L Carbon Dioxide 30 H (22-29) mmol/L Anion Gap 11 L (12-20) BUN 12 (9-16) mg/dL Creatinine 1.02 (0.5-1.4) mg/dL Estim Creat Clear Calc 87.3 Estimated GFR > 60 Random Glucose 98 (60-115) mg/dL Calcium 9.4 (8.4-10.2) mg/dL Total Bilirubin 0.4 (0.0-1.0) mg/dL AST 16 (5-37) U/L ALT 15 (0-40) U/L Alkaline Phosphatase 92 (39-117) U/L Troponin I High Sens 5.1 (<3.5-35.0) ng/L Total Protein 6.8 (6.5-8.0) g/dL Albumin 4.2 (3.5-5.0) g/dL COVID-19 (SALAZAR) Negative (Negative) COVID-19 Clin Com See Note Influenza Type A (MARIE) Negative (Negative) Influenza Type B (MARIE) Negative (Negative) Influenza A & B Note See Note Discharge Plan Discharge Clinical Impression: Viral gastroenteritis Patient Disposition: Home, Self-Care Instructions: Acute Nausea and Vomiting (ED) Additional Instructions: Drink plenty of fluid Medicine for nausea as prescribed Follow with PCP if not better Prescriptions: New ondansetron 4 mg tablet,disintegrating 4 mg PO Q6-8H PRN (Reason: nausea and vomiting) Qty: 7 0RF No Action divalproex 250 mg Tablet Extended Release 24 Hr 250 mg PO BEDTIME Qty: 0 0RF quetiapine 25 mg Tablet 25 mg PO BID@0900,1500 ammonium lactate 12 % Lotion 1 appl TOPICAL DAILY Rx Instructions: apply to bilateral feet lidocaine 5 % Adhesive Patch,Medicated 1 patch TOPICAL DAILY Rx Instructions: leave on most painful area for up to 12 hrs lansoprazole 15 mg Capsule,Delayed Release(Dr/Ec) 15 mg PO DAILY@0630 fluticasone propionate 50 mcg/actuation [place],Suspension 1 spray INTRANASAL DAILY Rx Instructions: administer into each nostril prazosin 2 mg Capsule 2 mg PO BEDTIME Saline Nasal 0.65 % Aerosol,[place] 1 spray INTRANASAL DAILY Vivitrol 380 mg Suspension,Extended Rel Recon 380 mg IM Q4W quetiapine 25 mg Tablet 50 mg PO BEDTIME atorvastatin 20 mg Tablet 10 mg PO BEDTIME ondansetron HCl 4 mg tablet 4 mg PO Q8H PRN (Reason: nausea) Qty: 12 0RF
[2023-09-13 01:13] VITALS: PULSE 58
[2023-09-13 01:30] LABS: Basophils Absolute Auto 0.1 X10*3/uL (0.0-0.2); Basophils Percent Auto 0.8 % (0-2); Eosinophils Absolute Auto 0.1 X10*3/uL (0.0-0.4); Eosinophils Percent Auto 1.4 % (0-4); Hematocrit 44.8 % (42.0-52.0); Hemoglobin 15.4 g/dl (14.0-18.0); Imm Gran Abs Auto 0.04 X10*3/uL (0.00-0.03); Imm Gran Pct Auto 0.4 % (0.0-0.4); Lymphocytes Absolute Auto 1.4 X10*3/uL (1.2-4.9); Lymphocytes Percent Auto 13.7 % (20-40); MANUAL DIFF FLAG NO; Mean Corpuscular HGB Conc 34.4 g/dl (31.0-36.0); Mean Corpuscular Hemoglobin 28.5 pg (27.0-33.0); Mean Corpuscular Volume 82.8 fL (80.0-98.0); Monocytes Absolute Auto 0.6 X10*3/uL (0.1-1.2); Monocytes Percent Auto 5.6 % (2-11); Neutrophils Percent Auto 78.1 % (45-73); Platelet Count 208 X10*3/uL (160-400); Red Blood Count 5.41 X10*6/uL (4.60-5.80); Red Cell Distribution Width 13.9 % (11.0-16.0); White Blood Count 10.3 X10*3/uL (4.8-10.8)
[2023-09-13 01:44] LABS: Alanine Aminotransferase 15 U/L (0-40); Albumin Level 4.2 g/dL (3.5-5.0); Alkaline Phosphatase 92 U/L (39-117); Anion Gap 11 (12-20); Aspartate Amino Transferase 16 U/L (5-37); Bilirubin Total 0.4 mg/dL (0.0-1.0); Blood Urea Nitrogen 12 mg/dL (9-16); Calcium 9.4 mg/dL (8.4-10.2); Carbon Dioxide 30 mmol/L (22-29); Chloride 107 mmol/L (96-108); Creatinine Clr Calc Pharmacy 87.3; Estimated Glomerular Filt Rate > 60; Glucose Random 98 mg/dL (60-115); Potassium 4.2 mmol/L (3.3-5.1); Sodium 144 mmol/L (135-145); Total Protein 6.8 g/dL (6.5-8.0)
[2023-09-13 01:50] LABS: Troponin-I High Sensitivity 5.1 ng/L (<3.5-35.0)
[2023-09-13 01:57] LABS: COVID-19 Test Negative (Negative); IDNOW Serial# 08D9AD1C; IDNOW Serial# 152EDE1D; Influenza A Negative (Negative); Influenza B2 Negative (Negative)
[2023-09-13] MEDS: 0.9 % Sodium Chloride 1,000 ML 999 ML IV (02:21)
[2023-09-13] MEDS: Ketorolac Tromethamine 30 MG/ML VIAL IVPUSH (02:21)
[2023-09-13] MEDS: ondansetron HCL 4 MG/2 ML VIAL IVPUSH (02:21)
[2023-09-13 03:21] VITALS: BP 137/69; PULSE 55; RESP 16; O2SAT 99
[2023-09-13 05:31] VITALS: BP 124/79; PULSE 63; RESP 16; TEMP 36.8; O2SAT 99
== END 2023-09-13 05:33 | disposition home or self-care (01) ==
PROVIDERS: Emergency Provider Internal Medicine; PCP Internal Medicine
DX: A08.4 Viral intestinal infection, unspecified (principal); Z11.52 Encounter for screening for COVID-19
CPT/HCPCS: 71045; 80053; 84484; 85025; 87502; 87635; 93005; 96361; 96374; 96375; 99284; 99285; J1885; J2405

== ENCOUNTER → 2023-09-13 01:01 | Outpatient (BNV) | payer OTHER, SELFPAY | PROVIDERS: Emergency Provider Internal Medicine; PCP Internal Medicine; Visit Provider Internal Medicine Cardiovascular Disease | DX: R00.1 Bradycardia, unspecified (principal) | CPT/HCPCS: 93010 ==

== ENCOUNTER 2023-09-26 19:43 | Emergency (ER) | payer OTHER, SELFPAY ==
--- NOTE | ~2023-09-26 | CT_ITS ---
EXAMINATION: CT ABDOMEN AND PELVIS WITH CONTRAST CLINICAL INFORMATION: Diffuse abdominal pain. COMPARISON: CT abdomen and pelvis dated 07/17/2023. TECHNIQUE: Multidetector volumetric images were obtained from the superior aspect of the liver through the pubic symphysis following administration 85 mL of Omnipaque 350 intravenous contrast. Sagittal and coronal reformatted images were obtained on the technologist's workstation. Oral contrast: No This CT examination was performed using dose optimization techniques as appropriate, variously including the following: *Automated exposure control *Adjustment of mA and/or kV according to patient size (this includes techniques or standardized protocols for targeted exams where dose is matched to indication/reason for exam; i.e. extremities or head) *Use of iterative reconstruction technique DLP: 492 mGy-cm FINDINGS: LUNG BASES: There is mild bibasilar dependent hypoaeration. LIVER, GALLBLADDER, AND BILIARY TREE: The liver is normal in size, shape, and attenuation. Towards the anterior superior margin of the liver (3:10 and 6:22), a 6 mm hyperdense structure seen, possibly vascular. This is unchanged from 08/09/2019 (3:13 and 6:331), and it is considered benign by virtue of its long-term stability. No new focal hepatic lesion or biliary ductal dilatation is present. The gallbladder is unremarkable with no evidence of radiopaque gallstones, gallbladder wall thickening, or obvious pericholecystic inflammatory changes. PANCREAS: Unremarkable. SPLEEN: Unremarkable. ADRENAL GLANDS: Unremarkable. KIDNEYS AND URETERS: The kidneys are normal in size, shape, and attenuation. No hydronephrosis, hydroureter, or calculi seen. There are low-attenuation bilateral renal cysts, for which no imaging follow-up is recommended. No perinephric stranding. BLADDER: Mildly distended and otherwise unremarkable. GASTROINTESTINAL TRACT: There is mild diverticulosis, without acute diverticulitis. No bowel obstruction, free intraperitoneal air or abscess is. There is no focal bowel wall thickening. The vermiform appendix appears normal. ABDOMINAL WALL: No significant hernia is appreciated. LYMPH NODES: Normal. VASCULAR: There is mild aortoiliac atherosclerotic calcification. No abdominal aortic aneurysm or dissection is seen. PELVIC VISCERA: The prostate and seminal vesicles are unremarkable. OSSEOUS STRUCTURES: There is moderately severe degenerative disc disease at L2-L3 and L5-S1. There is multi-level lumbar spondylosis and facet arthropathy. No acute or aggressive osseous finding is noted. CT/CT abdomen pelvis w IV con IMPRESSION: 1. There is mild diverticulosis, without acute diverticulitis. 2. No urinary calculus or obstruction is seen. The urinary bladder is mildly distended. 3. There is no new abdominopelvic mass, free fluid or lymphadenopathy. 4. There are degenerative changes at L2-L3 and L5-S1. No acute or aggressive osseous finding is noted. Fleischner guidelines were followed.
[2023-09-26 19:46] VITALS: BP 141/81; PULSE 54; O2SAT 98
[2023-09-26 19:52] VITALS: BP 166/88; PULSE 50; RESP 18; TEMP 36.6; O2SAT 95; BMI 22.5
[2023-09-26 20:03] VITALS: BP 166/88; PULSE 56; RESP 18; TEMP 36.6; O2SAT 97
--- NOTE | 2023-09-26 20:10 | ED_ITS ---
HPI - Nausea/Vomiting/Diarrhea General Chief complaint: Nausea/Vomiting/Diarrhea Stated complaint: BLOODY DIARRHEA,NAUSEA,VOMITING,CHEST PAIN Time Seen by Provider: 09/26/23 20:02 Source: patient Mode of arrival: EMS Limitations: no limitations History of Present Illness HPI Narrative: Patient comes to the emergency room complaining of flu-like symptoms, including coughing, generalized malaise, nausea vomiting and diarrhea, no blood in the stool. Patient states that he was seen here on September 13, diagnosed with viral gastroenteritis. Since then, he has had no improvement on his symptoms. Patient complaining of diffuse abdominal discomfort. Patient denies fever or chills Related Data Home Medications Medication Instructions Recorded Confirmed ammonium lactate 12 % lotion 1 appl topical DAILY 07/17/23 07/17/23 atorvastatin 20 mg tablet 10 mg PO BEDTIME 07/17/23 07/17/23 fluticasone propionate 50 1 spray intranasal DAILY 07/17/23 07/17/23 mcg/actuation nasal spray,suspension lansoprazole 15 mg capsule,delayed 15 mg PO DAILY@0630 07/17/23 07/17/23 release lidocaine 5 % topical patch 1 patch topical DAILY 07/17/23 07/17/23 naltrexone microspheres 380 mg 380 mg IM Q4W 07/17/23 07/17/23 intramuscular suspension,extended release (Vivitrol) prazosin 2 mg capsule 2 mg PO BEDTIME 07/17/23 07/17/23 quetiapine 25 mg tablet 25 mg PO BID@0900,1500 07/17/23 07/17/23 quetiapine 25 mg tablet 50 mg PO BEDTIME 07/17/23 07/17/23 sodium chloride 0.65 % nasal spray 1 spray intranasal DAILY 07/17/23 07/17/23 aerosol (Saline Nasal) Previous Rx's Medication Instructions Recorded divalproex 250 mg tablet,extended 250 mg PO BEDTIME #0 tabs 06/26/21 release 24 hr ondansetron HCl 4 mg tablet 4 mg PO Q8H PRN nausea #12 tabs 07/18/23 ondansetron 4 mg disintegrating 4 mg PO Q6-8H PRN nausea and 09/13/23 tablet vomiting #7 tabs Allergies Allergy/AdvReac Type Severity Reaction Status Date / Time omeprazole [OMEPRAZOLE] Allergy Unknown Nausea and Verified 07/17/23 00:44 Vomiting aspirin AdvReac Nausea and Verified 07/17/23 00:44 Vomiting ibuprofen AdvReac Nausea and Verified 07/17/23 00:44 Vomiting pantoprazole AdvReac Nausea and Verified 07/17/23 00:44 Vomiting Review of Systems 2 Review of Systems: Constitutional : No Weight loss, No Fever, No Chills, No Night Sweats, No Fatigue, No Malaise ENT/Mouth : No Hearing loss, No Ear Pain, No Nasal Congestion, No Sinus Pain, No Hoarseness, No sore throat, No Rhinorrhea, No Swallowing Difficulty Eyes: No Eye Pain, No Swelling, No Redness, No Foreign Body, No Discharge, No Vision Changes Cardiovascular : No Chest Pain, No SOB, No Dyspnea on Exertion, No Orthopnea, No Edema, No Palpitations Respiratory : No Cough, No Sputum, No Wheezing, No Smoke Exposure, No Dyspnea Gastrointestinal : Complaining of nausea vomiting and diarrhea No Constipation, diffuse abdominal cramping No Hematochezia, No Melena Genitourinary : no irregular bleeding, No Dysuria, No Urinary Frequency, No Hematuria, No Urinary Incontinence, No Urgency, No Flank Pain, No Urinary Flow Changes, No Hesitancy Musculoskeletal : No joint pain, No Myalgias, No Joint Swelling Skin : No Skin Lesions, No rash Neuro : No Weakness, No Numbness, No Paresthesias, No Loss of Consciousness, No Dizziness, No Headache Psych : No Anxiety/Panic, No Depression, No SI/HI/AH/VH, No Social Issues, Heme/Lymph: No Bruising, No Bleeding,No Lymphadenopathy Endocrine : No Polyuria, No Polydipsia, No Temperature Intolerance [facility] Past Medical History Medical History ETOH abuse Gastritis Anxiety PTSD (post-traumatic stress disorder) MDD (major depressive disorder), recurrent episode, moderate Gastritis ETOH abuse Anxiety PTSD (post-traumatic stress disorder) Social History Social History Household Members: None Household Members Other:: Pt reports he lives in [employer] Housing: Apartment Housing Other:: Retired Home Do you presently have visiting nurse or other home services: Yes ([employer]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 Oriented X3. No acute distress. Well-appearing Eyes: Pupils equal, round and reactive to light. ENT: Pharynx normal. Neck: Normal inspection. Neck supple. No lymph nodes noted. No crepitus CVS: Normal heart rate and rhythm. Pulses normal. Normal S1 and S2 Respiratory: No respiratory distress. Breath sounds normal. No Wheezing. No rales Abdomen: Soft , exaggerated reaction to minimal palpation in all quadrants No rigidity. No distention. Skin: Skin warm and dry. Normal skin color. Normal skin turgor. Extremities: No lower extremity edema. No Lacerations. No Rash Neuro: Oriented X 3. No motor deficit. No sensory deficit. Moving all extremities. No slurred speech. CN 2 through 12 grossly intact Psych: calm, cooperative, normal affect Course Course Course Narrative: Patient receiving IV fluids, Zofran Medications Administered Discontinued Medications Generic Name Dose Route Start Last Admin Trade Name Freq PRN Reason Stop Dose Admin Sodium Chloride 1,000 mls @ 999 mls/hr 09/26/23 20:09 09/26/23 21:18 Ns IVCONT 09/26/23 21:09 999 mls/hr .Q1H1M ONE Administration Iohexol 100 ml 09/26/23 21:05 09/26/23 21:05 Iohexol 350 Mg/Ml 100 Ml Infus..Btl IV 09/26/23 21:06 85 ml ONCE ONE Administration Morphine Sulfate 2 mg 09/26/23 21:00 09/26/23 21:19 Morphine Sulfate 2 Mg/Ml Cartridge IVPUSH 09/26/23 21:01 2 mg ONCE ONE Administration Protocol Ondansetron HCl 4 mg 09/26/23 20:09 09/26/23 21:19 Ondansetron Hcl 4 Mg/2 Ml Vial IVPUSH 09/26/23 20:10 4 mg ONCE ONE Administration Medical Decision Making Medical Decision Making [facility] Narrative: My interpretation of labs: White blood cell count slightly elevated 11.5, otherwise normal hematology, chemistry at baseline, LFTs within normal limits, lipase normal, serology negative for COVID and influenza -patient receiving IV fluids, morphine and Zofran -CT scan of the abdomen pending -sign-out given to my colleague Dr. Peña Differential Diagnosis Differential Diagnoses: The differential diagnosis associated with the presentation includes (Gastritis, gastroenteritis, viral syndrome) Admission/Observation Consideration of admission/observation: Escalation of care including admission/observation considered (Given patient's ongoing symptoms, admission was considered) Lab Data [facility] Lab Attestation statement: I reviewed the patient's lab results. 09/26/23 20:22 09/26/23 20:22 Labs: Lab Results 09/26/23 Range/Units 20:22 WBC 11.5 H (4.8-10.8) X10*3/uL RBC 5.11 (4.60-5.80) X10*6/uL Hgb 14.5 (14.0-18.0) g/dl Hct 42.2 (42.0-52.0) % MCV 82.6 (80.0-98.0) fL MCH 28.4 (27.0-33.0) pg MCHC 34.4 (31.0-36.0) g/dl RDW 13.7 (11.0-16.0) % Plt Count 204 (160-400) X10*3/uL MPV 11.1 (9.4-12.4) fL Immature Gran % (Auto) 0.3 (0.0-0.4) % Neut % (Auto) 77.7 H (45-73) % Lymph % (Auto) 15.6 L (20-40) % [place] % (Auto) 4.9 (2-11) % Eos % (Auto) 1.2 (0-4) % Baso % (Auto) 0.3 (0-2) % Lymph # (Auto) 1.8 (1.2-4.9) X10*3/uL [place] # (Auto) 0.6 (0.1-1.2) X10*3/uL Eos # (Auto) 0.1 (0.0-0.4) X10*3/uL Baso # (Auto) 0.0 (0.0-0.2) X10*3/uL Abs Immat Gran (auto) 0.03 (0.00-0.03) X10*3/uL Absolute Neuts (auto) 8.9 H (2.0-8.3) x10*3/uL Absolute Nucleated RBC 0.000 (0.0-0.012) X10*3/uL Nucleated RBC % (auto) 0.0 (0.0-0.2) /100WBC ESR 2 (0-15) MM/HR Sodium 142 (135-145) mmol/L Potassium 4.0 (3.3-5.1) mmol/L Chloride 106 (96-108) mmol/L Carbon Dioxide 29 (22-29) mmol/L Anion Gap 11 L (12-20) BUN 12 (9-16) mg/dL Creatinine 1.05 (0.5-1.4) mg/dL Estim Creat Clear Calc 81.8 Estimated GFR > 60 Random Glucose 95 (60-115) mg/dL Calcium 9.2 (8.4-10.2) mg/dL Total Bilirubin 0.3 (0.0-1.0) mg/dL AST 20 (5-37) U/L ALT 14 (0-40) U/L Alkaline Phosphatase 82 (39-117) U/L C-Reactive Protein 0.16 (< or = 0.50) mg/dL Total Protein 6.6 (6.5-8.0) g/dL Albumin 4.2 (3.5-5.0) g/dL Lipase 21 (8-78) U/L COVID-19 (SALAZAR) Negative (Negative) COVID-19 Clin Com See Note Influenza Type A (MARIE) Negative (Negative) Influenza Type B (MARIE) Negative (Negative) Influenza A & B Note See Note Critical Care Time Critical Care Time Critical Care Time: Yes Total Critical Care Time: 45 Attestation: I have personally provided critical care time. Time includes review of lab data, radiology results, discussion with consultants, and monitoring for potential decompensation. Intervention performed as documented. Discharge Plan Discharge Clinical Impression: Abdominal pain, Nausea & vomiting Patient Disposition: Still a Patient Prescriptions: No Action divalproex 250 mg Tablet Extended Release 24 Hr 250 mg PO BEDTIME Qty: 0 0RF quetiapine 25 mg Tablet 25 mg PO BID@0900,1500 ammonium lactate 12 % Lotion 1 appl TOPICAL DAILY Rx Instructions: apply to bilateral feet lidocaine 5 % Adhesive Patch,Medicated 1 patch TOPICAL DAILY Rx Instructions: leave on most painful area for up to 12 hrs lansoprazole 15 mg Capsule,Delayed Release(Dr/Ec) 15 mg PO DAILY@0630 fluticasone propionate 50 mcg/actuation [place],Suspension 1 spray INTRANASAL DAILY Rx Instructions: administer into each nostril prazosin 2 mg Capsule 2 mg PO BEDTIME Saline Nasal 0.65 % Aerosol,[place] 1 spray INTRANASAL DAILY Vivitrol 380 mg Suspension,Extended Rel Recon 380 mg IM Q4W quetiapine 25 mg Tablet 50 mg PO BEDTIME atorvastatin 20 mg Tablet 10 mg PO BEDTIME ondansetron HCl 4 mg tablet 4 mg PO Q8H PRN (Reason: nausea) Qty: 12 0RF ondansetron 4 mg tablet,disintegrating 4 mg PO Q6-8H PRN (Reason: nausea and vomiting) Qty: 7 0RF
--- NOTE | 2023-09-26 20:23 | MHC.EDTECH ---
Patient came in by ambulance,changed into hospital attire, vitals taken,labs,covid,and flu,obtained and sent to lab
[2023-09-26 20:27] LABS: MANUAL DIFF FLAG NO
[2023-09-26 20:42] LABS: C Reactive Protein 0.16 mg/dL (< or = 0.50); Lipase 21 U/L (8-78)
[2023-09-26 20:44] LABS: Alanine Aminotransferase 14 U/L (0-40); Albumin Level 4.2 g/dL (3.5-5.0); Alkaline Phosphatase 82 U/L (39-117); Anion Gap 11 (12-20); Aspartate Amino Transferase 20 U/L (5-37); Bilirubin Total 0.3 mg/dL (0.0-1.0); Blood Urea Nitrogen 12 mg/dL (9-16); Calcium 9.2 mg/dL (8.4-10.2); Carbon Dioxide 29 mmol/L (22-29); Chloride 106 mmol/L (96-108); Creatinine Clr Calc Pharmacy 81.8; Estimated Glomerular Filt Rate > 60; Glucose Random 95 mg/dL (60-115); Sodium 142 mmol/L (135-145); Total Protein 6.6 g/dL (6.5-8.0)
[2023-09-26 20:45] LABS: Basophils Percent Auto 0.3 % (0-2); Eosinophils Absolute Auto 0.1 X10*3/uL (0.0-0.4); Eosinophils Percent Auto 1.2 % (0-4); Hematocrit 42.2 % (42.0-52.0); Hemoglobin 14.5 g/dl (14.0-18.0); Imm Gran Abs Auto 0.03 X10*3/uL (0.00-0.03); Imm Gran Pct Auto 0.3 % (0.0-0.4); Lymphocytes Absolute Auto 1.8 X10*3/uL (1.2-4.9); Lymphocytes Percent Auto 15.6 % (20-40); Mean Corpuscular HGB Conc 34.4 g/dl (31.0-36.0); Mean Corpuscular Hemoglobin 28.4 pg (27.0-33.0); Mean Corpuscular Volume 82.6 fL (80.0-98.0); Mean Platelet Volume 11.1 fL (9.4-12.4); Monocytes Absolute Auto 0.6 X10*3/uL (0.1-1.2); Monocytes Percent Auto 4.9 % (2-11); Neutrophils Absolute Auto 8.9 x10*3/uL (2.0-8.3); Neutrophils Percent Auto 77.7 % (45-73); Platelet Count 204 X10*3/uL (160-400); Red Blood Count 5.11 X10*6/uL (4.60-5.80); Red Cell Distribution Width 13.7 % (11.0-16.0); White Blood Count 11.5 X10*3/uL (4.8-10.8)
[2023-09-26 20:46] LABS: IDNOW Serial# 9DB6401D; Influenza A Negative (Negative); Influenza B2 Negative (Negative)
[2023-09-26 20:47] LABS: COVID-19 Test Negative (Negative); IDNOW Serial# 152EDE1D
[2023-09-26] MEDS: iohexoL 350 MG/ML 100 ML INFUS..BTL IV (21:05)
--- NOTE | 2023-09-26 21:06 | ECG_ITS ---
Test Reason : ABD PAIN Blood Pressure : / mmHG Vent. Rate : 071 BPM Atrial Rate : 071 BPM P-R Int : 180 ms QRS Dur : 088 ms QT Int : 418 ms P-R-T Axes : 071 032 031 degrees QTc Int : 454 ms Sinus rhythm with Premature atrial complexes with Aberrant conduction Abnormal ECG When compared with ECG of 13-SEP-2023 01:01, Aberrant conduction is now Present Referred By: Gladys Martin Electronically Signed By:ROSEMARIE HERNDON
[2023-09-26] MEDS: 0.9 % Sodium Chloride 1,000 ML 999 ML IVCONT (21:18)
[2023-09-26 21:19] LABS: Erythrocyte Sedimentation Rate 2 MM/HR (0-15)
[2023-09-26] MEDS: ondansetron HCL 4 MG/2 ML VIAL IVPUSH (21:19)
[2023-09-26] MEDS: Morphine Sulfate 2 MG/ML CARTRIDGE IVPUSH (21:19)
--- NOTE | 2023-09-26 21:29 | MHC.EDTECH ---
EKG taken per order and signed by provider
[2023-09-26 21:31] VITALS: BP 186/84; PULSE 60; RESP 18; TEMP 36.7; O2SAT 97
--- NOTE | 2023-09-26 21:32 | MHC.EDTECH ---
Hourly rounds and vitals completed,patient is unable to give a urine at this time will re-attempt,patient is anxious at this time,BP is elevated will re-take when patient calms down RN aware
--- NOTE | 2023-09-26 21:54 | MHC.EDTECH ---
Patient's calmed down now and BP is 138/84,Patient urinated 300MLS of yellow urine in urinal, Urine sample collected and sent to lab.
[2023-09-26 21:55] VITALS: BP 138/84; PULSE 58; RESP 16; O2SAT 97
[2023-09-26 22:02] LABS: Appearance Urine Clear; Color Urine Yellow; Glucose Urine UA Negative (Negative); Leukocyte Esterase Urine Negative (Negative); Nitrite Urine Negative (Negative); Specific Gravity - Urine >= 1.030 (1.005-1.025); Urine Blood Negative (Negative); Urine Ketones Negative (Negative); Urine Protein Negative (Neg-Trace)
[2023-09-26 22:08] LABS: Amphetamine Screen Urine Not Detected (Not Detect); Barbiturates, Urine Not Detected (Not Detect); Benzodiazepines Screen Urine Not Detected (Not Detect); Cannabinoid Screen Urine POSITIVE (Not Detect); Cocaine Screen Urine POSITIVE (Not Detect); Fentanyl, urine Not Detected (Not Detect); Opiate Screen Urine POSITIVE (Not Detect); Phencyclidine Screen Urine Not Detected (Not Detect)
== END 2023-09-26 23:25 | disposition home or self-care (01) ==
PROVIDERS: Emergency Medicine; Emergency Provider Emergency Medicine
DX: R11.2 Nausea with vomiting, unspecified (principal); R07.89 Other chest pain; R05.9 Cough, unspecified; R10.9 Unspecified abdominal pain; Z11.52 Encounter for screening for COVID-19; Z79.899 Other long term (current) drug therapy
CPT/HCPCS: 36415; 74177; 80053; 80307; 81003; 83690; 85025; 85652; 86140; 87502; 87635; 93005; 96374; 96375; 99284; 99285; J2270; J2405; Q9967

== ENCOUNTER → 2023-09-26 21:06 | Outpatient (BNV) | payer OTHER, SELFPAY | PROVIDERS: Emergency Provider Emergency Medicine; Visit Provider Internal Medicine | DX: I49.1 Atrial premature depolarization (principal); R94.31 Abnormal electrocardiogram [ECG] [EKG] | CPT/HCPCS: 93010 ==

== ENCOUNTER 2024-01-23 10:03 | Emergency (ER) | payer OTHER, SELFPAY ==
--- NOTE | 2024-01-23 | ECG_ITS ---
Test Reason : CHEST PAIN Blood Pressure : / mmHG Vent. Rate : 072 BPM Atrial Rate : 072 BPM P-R Int : 176 ms QRS Dur : 088 ms QT Int : 398 ms P-R-T Axes : 084 064 048 degrees QTc Int : 435 ms Normal sinus rhythm Minimal voltage criteria for LVH, may be normal variant ( Sokolow-Nuno ) Borderline ECG When compared with ECG of 26-SEP-2023 21:26, Aberrant conduction is no longer Present Referred By: Generic ED Physician Electronically Signed By:SAVANNAH CARTER MD
--- NOTE | ~2024-01-23 | XR_ITS ---
EXAMINATION: XR CHEST CLINICAL INFORMATION: Chest pain COMPARISON: Chest radiograph 09/13/2023 TECHNIQUE: 2 views of the chest were obtained. FINDINGS: No significant abnormality is noted involving the heart, lungs, mediastinum, bony thorax or soft tissues. XR/XR chest 2V IMPRESSION: Unremarkable examination.
[2024-01-23 10:07] VITALS: BP 147/93; PULSE 77; RESP 18; TEMP 36.6; O2SAT 99; BMI 21.8
[2024-01-23 10:35] LABS: MANUAL DIFF FLAG NO
[2024-01-23 10:37] LABS: Basophils Percent Auto 0.4 % (0-2); Eosinophils Percent Auto 0.3 % (0-4); Hematocrit 42.3 % (42.0-52.0); Imm Gran Abs Auto 0.02 X10*3/uL (0.00-0.03); Imm Gran Pct Auto 0.3 % (0.0-0.4); Lymphocytes Absolute Auto 1.7 X10*3/uL (1.2-4.9); Lymphocytes Percent Auto 23.1 % (20-40); Mean Corpuscular HGB Conc 35.5 g/dl (31.0-36.0); Mean Corpuscular Hemoglobin 29.5 pg (27.0-33.0); Mean Corpuscular Volume 83.1 fL (80.0-98.0); Mean Platelet Volume 10.4 fL (9.4-12.4); Monocytes Absolute Auto 0.5 X10*3/uL (0.1-1.2); Monocytes Percent Auto 6.9 % (2-11); Platelet Count 200 X10*3/uL (160-400); Red Blood Count 5.09 X10*6/uL (4.60-5.80); Red Cell Distribution Width 14.1 % (11.0-16.0); White Blood Count 7.2 X10*3/uL (4.8-10.8)
[2024-01-23 10:59] LABS: Alanine Aminotransferase 23 U/L (0-40); Albumin Level 4.5 g/dL (3.5-5.0); Alkaline Phosphatase 83 U/L (39-117); Anion Gap 12 (12-20); Aspartate Amino Transferase 24 U/L (5-37); Bilirubin Total 0.6 mg/dL (0.0-1.0); Blood Urea Nitrogen 13 mg/dL (9-16); Calcium 9.6 mg/dL (8.4-10.2); Carbon Dioxide 26 mmol/L (22-29); Chloride 108 mmol/L (96-108); Creatinine Clr Calc Pharmacy 85.2; Estimated Glomerular Filt Rate > 60; Glucose Random 91 mg/dL (60-115); Potassium 3.6 mmol/L (3.3-5.1); Sodium 142 mmol/L (135-145); Total Protein 7.1 g/dL (6.5-8.0)
[2024-01-23 11:07] LABS: Troponin-I High Sensitivity 13.7 ng/L (<3.5-35.0)
--- NOTE | 2024-01-23 12:04 | ED_ITS ---
HPI - Chest Pain General Chief Complaint: Chest Pain Stated Complaint: chest pain muscle spasms Time Seen by Provider: 01/23/24 12:03 Source: patient Mode of arrival: ambulatory Limitations: no limitations History of Present Illness HPI narrative: This is a 63-year-old man with a past medical history of gastritis, PTSD, anxiety, alcohol abuse who presents for evaluation. Patient states that he was in his apartment last night and had sensation of ?muscle spasms?. Patient states that he gets muscle spasms every once in a while. He states that last night while he was lying down at rest he also experience muscle spasms on the right side of his chest. He reports sensation numbness in his right arm. He states he no longer has discomfort in his chest or numbness in his right arm. He states having muscle spasms throughout his body down to his toes. He reports associated nausea without vomiting. He states no fevers, chills, cough, dyspnea, congestion, headache, neck pain, vision changes, hearing changes, abdominal pain, vomiting or trauma. He states no SI/HI. He states he no longer drinks alcohol. Related Data Home Medications ?Medication ?Instructions ?Recorded ?Confirmed ammonium lactate 12 % lotion 1 appl topical DAILY 07/17/23 07/17/23 atorvastatin 20 mg tablet 10 mg PO BEDTIME 07/17/23 07/17/23 fluticasone propionate 50 1 spray intranasal DAILY 07/17/23 07/17/23 mcg/actuation nasal spray,suspension lansoprazole 15 mg capsule,delayed 15 mg PO DAILY@0630 07/17/23 07/17/23 release lidocaine 5 % topical patch 1 patch topical DAILY 07/17/23 07/17/23 naltrexone microspheres 380 mg 380 mg IM Q4W 07/17/23 07/17/23 intramuscular suspension,extended release (Vivitrol) prazosin 2 mg capsule 2 mg PO BEDTIME 07/17/23 07/17/23 quetiapine 25 mg tablet 25 mg PO BID@0900,1500 07/17/23 07/17/23 quetiapine 25 mg tablet 50 mg PO BEDTIME 07/17/23 07/17/23 sodium chloride 0.65 % nasal spray 1 spray intranasal DAILY 07/17/23 07/17/23 aerosol (Saline Nasal) Previous Rx's ?Medication ?Instructions ?Recorded divalproex 250 mg tablet,extended 250 mg PO BEDTIME #0 tabs 06/26/21 release 24 hr ondansetron HCl 4 mg tablet 4 mg PO Q8H PRN nausea #12 tabs 07/18/23 ondansetron 4 mg disintegrating 4 mg PO Q6-8H PRN nausea and 09/13/23 tablet vomiting #7 tabs ondansetron 4 mg disintegrating 4 mg PO Q8H PRN nausea and 09/26/23 tablet vomiting #10 tabs acetaminophen 500 mg tablet 1,000 mg (2 x 500 mg) PO .q8hr PRN 01/23/24 (Tylenol Extra Strength) pain #14 tabs Allergies Allergy/AdvReac Type Severity Reaction Status Date / Time omeprazole [OMEPRAZOLE] Allergy Unknown Nausea and Verified 01/23/24 10:08 Vomiting aspirin AdvReac Nausea and Verified 01/23/24 10:08 Vomiting ibuprofen AdvReac Nausea and Verified 01/23/24 10:08 Vomiting pantoprazole AdvReac Nausea and Verified 01/23/24 10:08 Vomiting Review of Systems 2 Review of Systems: ROS as per [facility] Past Medical History Medical History ETOH abuse Gastritis Anxiety PTSD (post-traumatic stress disorder) MDD (major depressive disorder), recurrent episode, moderate Gastritis ETOH abuse Anxiety PTSD (post-traumatic stress disorder) Social History Social History Household Members: None [facility] Members Other[facility] Housing Other:: Retired Home Do you presently have visiting nurse or 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 home 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) Alcohol intake: former Patient Tobacco Use Status: Current everyday Tobacco user Tobacco use type: Cigarette Second Hand Smoke Exposure: No Substance Use Type: Marijuana Advance Directives: No Advance Directives Information Provided: No Do you have a plan to hurt others: No Plan service: Yes Sexual orientation: Did not discuss Physical Exam 2 Vital Signs: Vital Signs: Last Vital Signs Temp 96.7 F L 01/23/24 13:11 Pulse 56 01/23/24 13:11 Resp 18 01/23/24 13:11 BP 159/97 H 01/23/24 13:11 Pulse Ox 97 01/23/24 13:11 O2 Del Method Room Air 01/23/24 13:11 BMI result Body Mass Index 21.8 Gen: NAD, AOx3 HEENT: NCAT, EOMI, normal conjunctiva CV: RRR, 2+ bilateral radial pulses, no peripheral edema Pulm: CTAB, no increased work of breathing GI: Soft, NTND, no rebound, guarding or rigidity MSK: Bilateral upper and lower extremity compartments are soft, full range of motion with bilateral shoulder flexion/extension, Neuro: Cranial nerves 2-12 are grossly intact, sensation is intact to light touch in bilateral upper and lower extremities, no dysmetria, 5/5 strength in bilateral upper and lower extremities Medications Administered Discontinued Medications Generic Name Dose Route Start Last Admin Trade Name Freq PRN Reason Stop Dose Admin Ketorolac Tromethamine 30 mg 01/23/24 12:22 01/23/24 12:38 Ketorolac Tromethamine 30 Mg/Ml Vial IM 01/23/24 12:23 30 mg ONCE ONE Administration Medical Decision Making Medical Decision Making [facility] Narrative: Differential diagnosis includes, but is not limited to muscle spasm, electrolyte abnormality, acute coronary syndrome. Patient is afebrile and hemodynamically stable on room air. Exam is benign and reassuring. I reviewed and interpreted labs, which are noncontributory including troponin x2 with a delta of 1.0. Further, history of chest pain is atypical and not suggestive of acute coronary syndrome. I do not suspect acute coronary syndrome. I have very low suspicion for any other acute intrathoracic or cardiopulmonary process including aortic dissection, esophageal rupture or pulmonary embolism. I reviewed and interpreted EKG, which is unremarkable for any acute findings. Diagnostic imaging studies are unremarkable for any acute findings. Patient is provided Toradol for analgesia. Patient is clinically sober and has decision making capacity. On re-examination, patient is well-appearing and in no acute distress. ?Patient states symptoms have significantly improved. Patient states that he wonders whether or not anxiety is contributing to his symptoms as he has PTSD. Patient states feeling well for discharge home and would like to go home to follow up with his therapist next week and meet with his psychiatrist. ?There is no indication for further emergent evaluation in this otherwise well-appearing patient as above. ?Patient is provided written and verbal instructions, educational materials, recommendations for outpatient follow-up, strict return precautions and teach back is performed. ?Patient states understanding and agreement with plan of care. ?Patient is discharged home in stable and improved condition. Differential Diagnosis Differential Diagnoses: The differential diagnosis associated with the presentation includes Admission/Observation Consideration of admission/observation: Escalation of care including admission/observation considered Lab Data MDM Lab Attestation statement: I reviewed the patient's lab results. 01/23/24 10:25 01/23/24 10:25 Labs: Lab Results 01/23/24 01/23/24 Range/Units 10:25 13:05 WBC 7.2 (4.8-10.8) X10*3/uL RBC 5.09 (4.60-5.80) X10*6/uL Hgb 15.0 (14.0-18.0) g/dl Hct 42.3 (42.0-52.0) % MCV 83.1 (80.0-98.0) fL MCH 29.5 (27.0-33.0) pg MCHC 35.5 (31.0-36.0) g/dl RDW 14.1 (11.0-16.0) % Plt Count 200 (160-400) X10*3/uL MPV 10.4 (9.4-12.4) fL Immature Gran % (Auto) 0.3 (0.0-0.4) % Neut % (Auto) 69.0 (45-73) % Lymph % (Auto) 23.1 (20-40) % Branch % (Auto) 6.9 (2-11) % Eos % (Auto) 0.3 (0-4) % Baso % (Auto) 0.4 (0-2) % Lymph # (Auto) 1.7 (1.2-4.9) X10*3/uL Branch # (Auto) 0.5 (0.1-1.2) X10*3/uL Eos # (Auto) 0.0 (0.0-0.4) X10*3/uL Baso # (Auto) 0.0 (0.0-0.2) X10*3/uL Abs Immat Gran (auto) 0.02 (0.00-0.03) X10*3/uL Absolute Neuts (auto) 5.0 (2.0-8.3) x10*3/uL Absolute Nucleated RBC 0.000 (0.0-0.012) X10*3/uL Nucleated RBC % (auto) 0.0 (0.0-0.2) /100WBC Sodium 142 (135-145) mmol/L Potassium 3.6 (3.3-5.1) mmol/L Chloride 108 (96-108) mmol/L Carbon Dioxide 26 (22-29) mmol/L Anion Gap 12 (12-20) BUN 13 (9-16) mg/dL Creatinine 0.98 (0.5-1.4) mg/dL Estim Creat Clear Calc 85.2 Estimated GFR > 60 Random Glucose 91 (60-115) mg/dL Calcium 9.6 (8.4-10.2) mg/dL Magnesium 2.0 (1.6-2.6) mg/dL Total Bilirubin 0.6 (0.0-1.0) mg/dL AST 24 (5-37) U/L ALT 23 (0-40) U/L Alkaline Phosphatase 83 (39-117) U/L Troponin I High Sens 13.7 D 12.7 (<3.5-35.0) ng/L Total Protein 7.1 (6.5-8.0) g/dL Albumin 4.5 (3.5-5.0) g/dL Lipase 16 (8-78) U/L Independent Interpretation I performed an independent interpretation of an: EKG and Plain X-Ray Interpretation: EKG shows sinus rhythm at 72 beats per minute, TN 176, QRS 88, QTC 435, biphasic T-waves in lead V1 and V2, no STEMI (compared to prior EKG September 26, 2023 there are no diagnostic ischemic changes). Chest x-ray demonstrates no focal consolidation, widened mediastinum or pneumothorax. Radiology Impression Discussion of test interpretation with radiology: I have reviewed the radiologist's reading. Radiologist Impression: FINDINGS: No significant abnormality is noted involving the heart, lungs, mediastinum, bony thorax or soft tissues. XR/XR chest 2V IMPRESSION: Unremarkable examination. Dictated By: Matthew Ware MD Signed By: <Electronically signed by Matthew Ware MD in OV> 01/23/24 1326 Discharge Plan Discharge Clinical Impression: Chest pain, Muscle spasm Patient Disposition: Home, Self-Care Instructions: Chest Pain (ED), Muscle Spasm (ED) Additional Instructions: You were seen and evaluated in the emergency room. Your vital signs were normal and he did not have fever. ? Your blood work was normal. Your chest x-ray was normal. Your EKG was normal. You were given a prescription for Tylenol. Please use as directed. Please follow-up with your primary care doctor in the next 5-7 days. ? Please return to the emergency room if you develop any worsening symptoms including, but not limited chest pain or difficulty breathing. ? Prescriptions: New acetaminophen [Tylenol Extra Strength] 500 mg tablet 1,000 mg PO .q8hr PRN (Reason: pain) Qty: 14 0RF No Action divalproex 250 mg Tablet Extended Release 24 Hr 250 mg PO BEDTIME Qty: 0 0RF quetiapine 25 mg Tablet 25 mg PO BID@0900,1500 ammonium lactate 12 % Lotion 1 appl TOPICAL DAILY Rx Instructions: apply to bilateral feet lidocaine 5 % Adhesive Patch,Medicated 1 patch TOPICAL DAILY Rx Instructions: leave on most painful area for up to 12 hrs lansoprazole 15 mg Capsule,Delayed Release(Dr/Ec) 15 mg PO DAILY@0630 fluticasone propionate 50 mcg/actuation [place],Suspension 1 spray INTRANASAL DAILY Rx Instructions: administer into each nostril prazosin 2 mg Capsule 2 mg PO BEDTIME Saline Nasal 0.65 % Aerosol,[place] 1 spray INTRANASAL DAILY Vivitrol 380 mg Suspension,Extended Rel Recon 380 mg IM Q4W quetiapine 25 mg Tablet 50 mg PO BEDTIME atorvastatin 20 mg Tablet 10 mg PO BEDTIME ondansetron HCl 4 mg tablet 4 mg PO Q8H PRN (Reason: nausea) Qty: 12 0RF ondansetron 4 mg tablet,disintegrating 4 mg PO Q6-8H PRN (Reason: nausea and vomiting) Qty: 7 0RF ondansetron 4 mg tablet,disintegrating 4 mg PO Q8H PRN (Reason: nausea and vomiting) Qty: 10 0RF Print Language: Luxembourgish
[2024-01-23 12:21] LABS: Lipase 16 U/L (8-78)
[2024-01-23] MEDS: Ketorolac Tromethamine 30 MG/ML VIAL IM (12:38)
[2024-01-23 13:11] VITALS: BP 159/97; PULSE 56; RESP 18; TEMP 35.9; O2SAT 97
[2024-01-23 14:02] LABS: Troponin-I High Sensitivity 12.7 ng/L (<3.5-35.0)
== END 2024-01-23 14:21 | disposition home or self-care (01) ==
PROVIDERS: Emergency Provider Emergency Medicine; PCP Internal Medicine
DX: R07.9 Chest pain, unspecified (principal); M62.838 Other muscle spasm
CPT/HCPCS: 36415; 71046; 80053; 83690; 83735; 84484; 85025; 93005; 96372; 99284; J1885

== ENCOUNTER → 2024-01-23 10:13 | Outpatient (BNV) | payer OTHER, SELFPAY | PROVIDERS: Emergency Provider Emergency Medicine; PCP Internal Medicine; Visit Provider Internal Medicine Cardiovascular Disease | DX: R07.9 Chest pain, unspecified (principal) | CPT/HCPCS: 93010 ==

== ENCOUNTER 2024-02-28 04:22 | Emergency (ER) | payer OTHER, SELFPAY ==
[2024-02-28] VITALS (8 sets, daily range): BP systolic 106–161; BP diastolic 77–91; PULSE 64–75; RESP 16–21; TEMP 36.4–36.6; O2SAT 91–96; BMI 21.1
--- NOTE | 2024-02-28 | ECG_ITS ---
Test Reason : CHEST PAIN Blood Pressure : / mmHG Vent. Rate : 069 BPM Atrial Rate : 069 BPM P-R Int : 182 ms QRS Dur : 092 ms QT Int : 404 ms P-R-T Axes : 079 058 053 degrees QTc Int : 432 ms Normal sinus rhythm Nonspecific ST abnormality Abnormal ECG When compared with ECG of 23-JAN-2024 10:13, No significant change was found Referred By: Generic ED Physician Electronically Signed By:Ghulam Dumont
--- NOTE | ~2024-02-28 | XR_ITS ---
EXAMINATION: XR CHEST CLINICAL INFORMATION: Chest pain and cough. COMPARISON: 02/19/2024. TECHNIQUE: Frontal view of the chest was obtained. FINDINGS: The cardiomediastinal silhouette is normal. There are bilateral lower lung field increased markings/patchy infiltrative change. There are no significant pleural effusions. The bony structures and soft tissues are unremarkable. XR/XR chest 1V IMPRESSION: Bilateral lower lung field increased markings/patchy infiltrative change. Consider early infiltrate/pneumonia
[2024-02-28 05:19] LABS: Basophils Percent Auto 0.6 % (0-2); Eosinophils Percent Auto 0.3 % (0-4); Hematocrit 44.7 % (42.0-52.0); Hemoglobin 15.6 g/dl (14.0-18.0); Imm Gran Abs Auto 0.03 X10*3/uL (0.00-0.03); Imm Gran Pct Auto 0.5 % (0.0-0.4); Lymphocytes Percent Auto 15.6 % (20-40); MANUAL DIFF FLAG NO; Mean Corpuscular HGB Conc 34.9 g/dl (31.0-36.0); Mean Corpuscular Hemoglobin 29.1 pg (27.0-33.0); Mean Corpuscular Volume 83.2 fL (80.0-98.0); Mean Platelet Volume 10.7 fL (9.4-12.4); Monocytes Absolute Auto 0.2 X10*3/uL (0.1-1.2); Monocytes Percent Auto 2.7 % (2-11); Neutrophils Absolute Auto 5.1 x10*3/uL (2.0-8.3); Neutrophils Percent Auto 80.3 % (45-73); Platelet Count 193 X10*3/uL (160-400); Red Blood Count 5.37 X10*6/uL (4.60-5.80); Red Cell Distribution Width 14.6 % (11.0-16.0); White Blood Count 6.4 X10*3/uL (4.8-10.8)
[2024-02-28 05:33] LABS: Alanine Aminotransferase 24 U/L (0-40); Albumin Level 4.4 g/dL (3.5-5.0); Alkaline Phosphatase 86 U/L (39-117); Anion Gap 11 (12-20); Aspartate Amino Transferase 24 U/L (5-37); Bilirubin Total 0.6 mg/dL (0.0-1.0); Blood Urea Nitrogen 15 mg/dL (9-16); Calcium 9.8 mg/dL (8.4-10.2); Carbon Dioxide 27 mmol/L (22-29); Chloride 107 mmol/L (96-108); Creatinine Clr Calc Pharmacy 82.3; Estimated Glomerular Filt Rate > 60; Glucose Random 103 mg/dL (60-115); Potassium 3.5 mmol/L (3.3-5.1); Sodium 141 mmol/L (135-145); Total Protein 6.9 g/dL (6.5-8.0)
[2024-02-28 05:38] LABS: Troponin-I High Sensitivity 23.6 ng/L (<3.5-35.0)
[2024-02-28 05:55] LABS: Influenza A PCR NEGATIVE (Negative); Influenza B PCR NEGATIVE (Negative); Resp Syncy Virus RNA Qual PCR NEGATIVE (Negative); SARS COV2 PCR INHOUSE NEGATIVE (Negative)
--- NOTE | 2024-02-28 08:16 | ED.CHESTPAIN ---
HPI - Chest Pain General Chief Complaint: Chest Pain Stated Complaint: chest pain Time Seen by Provider: 02/28/24 08:13 Source: patient Mode of arrival: ambulatory Limitations: no limitations History of Present Illness ED Provider: DR. Beauchamp HPI narrative: Patient is on a crack binge and can't stop Related Data Home Medications ?Medication ?Instructions ?Recorded ?Confirmed atorvastatin 20 mg tablet 10 mg PO BEDTIME 07/17/23 02/28/24 lansoprazole 15 mg capsule,delayed 15 mg PO DAILY@0630 07/17/23 02/28/24 release naltrexone microspheres 380 mg 380 mg IM Q4W 07/17/23 07/17/23 intramuscular suspension,extended release (Vivitrol) prazosin 2 mg capsule 2 mg PO BEDTIME 07/17/23 02/28/24 quetiapine 25 mg tablet 25 mg PO BID@0900,1500 07/17/23 02/28/24 quetiapine 25 mg tablet 50 mg PO BEDTIME 07/17/23 02/28/24 calcium polycarbophil 625 mg tablet 625 mg PO BID 02/28/24 02/28/24 cetirizine 10 mg tablet 10 mg PO DAILY 02/28/24 02/28/24 sildenafil 50 mg tablet 50 mg PO DAILY PRN Erectile 02/28/24 02/28/24 Dysfunction Previous Rx's ?Medication ?Instructions ?Recorded divalproex 250 mg tablet,extended 250 mg PO BEDTIME #0 tabs 06/26/21 release 24 hr ondansetron 4 mg disintegrating 4 mg PO Q8H PRN nausea and 09/26/23 tablet vomiting #10 tabs Allergies Allergy/AdvReac Type Severity Reaction Status Date / Time omeprazole [OMEPRAZOLE] Allergy Unknown Nausea and Verified 02/28/24 04:45 Vomiting aspirin AdvReac Nausea and Verified 02/28/24 04:45 Vomiting ibuprofen AdvReac Nausea and Verified 02/28/24 04:45 Vomiting pantoprazole AdvReac Nausea and Verified 02/28/24 04:45 Vomiting Review of Systems Review of Systems: Yes all other systems are reviewed and are negative Neurologic: Denies Sensory deficit (Neuro) PMFSH Past Medical History Medical History ETOH abuse Gastritis Anxiety PTSD (post-traumatic stress disorder) MDD (major depressive disorder), recurrent episode, moderate Gastritis ETOH abuse Anxiety PTSD (post-traumatic stress disorder) Social History Social History Household Members: None Household Members Other:: Pt [facility] Housing: Apartment Housing Other:: Retired Home Do you presently have 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) Alcohol intake: former Patient Tobacco Use Status: Current everyday Tobacco user Tobacco use type: Cigarette Smoked in Last 30 Days: No Second Hand Smoke Exposure: No Use of substances other than those prescribed or required for medical reasons: No Substance Use Type: Marijuana Advance Directives: No Advance Directives Information Provided: Yes service: Yes Sexual orientation: Did not discuss Physical Exam Vital Signs: Vital Signs: Last Vital Signs Temp 97.6 F 02/28/24 04:37 Pulse 71 02/28/24 08:11 Resp 21 H 02/28/24 08:11 BP 106/77 02/28/24 08:11 Pulse Ox 94 02/28/24 08:11 O2 Del Method Room Air 02/28/24 08:11 BMI result Body Mass Index 21.1 Const: Other: cachectic male looking older than stated age Orientation/consciousness: oriented to person and patient oriented x3 Limitations: no limitations HEENT: Head: Yes normal to inspection Ears: external ears normal General nose exam: Normal external nose present Mouth: Normal oral and palatal mucosa present and oropharynx normal Throat: Yes posterior oropharynx normal Eyes: General: appearance normal, both eyes and all related structures Neck: Other: supple Neck: Yes normal visual inspection Chest: Chest palpation & inspection: normal inspection of the chest Resp: Auscultation: clear to auscultation bilaterally Cardio: Jugular venous distension: no JVD Rate: regular rate Rhythm: regular rhythm Heart sounds: S1 normal heart sound present and S2 normal heart sound present GI: Inspection: Yes normal to inspection Palpation (GI): Soft to palpation, nontender and No hepatosplenomegaly present Auscultation: normal bowel sounds : General: Yes no CVA tenderness Back/Spine/Pelvis: Back: no CVA tenderness Skin: General skin exam: no rashes or lesions noted Neuro: General: oriented to person and patient oriented x3 Cranial nerves: Yes CN's II-XII intact bilaterally Motor exam (neuro): 5/5 motor strength present throughout Sensory Exam: No Sensory deficit (Neuro) Extrem: General: Yes normal to inspection Psych: Appearance: grossly normal Course Reevaluation(s) Reevaluation #1: Patient seen by crisis will need to be a dual diagnosis admit, At this time patient placed in physician observation as he needs time to be reevaluated or find a dual diagnosis bed. Patient is currently calm at this time Time: 14:15 Medications Administered Discontinued Medications Generic Name Dose Route Start Last Admin Trade Name Mariela PRN Reason Stop Dose Admin Acetaminophen 975 mg 02/28/24 10:21 02/28/24 10:29 Acetaminophen 325 Mg Tablet PO 02/28/24 10:22 975 mg ONCE ONE Administration Medical Decision Making Lab Data 02/28/24 05:14 02/28/24 05:14 Labs: Lab Results 02/28/24 02/28/24 02/28/24 Range/Units 05:14 08:57 10:09 WBC 6.4 (4.8-10.8) X10*3/uL RBC 5.37 (4.60-5.80) X10*6/uL Hgb 15.6 (14.0-18.0) g/dl Hct 44.7 (42.0-52.0) % MCV 83.2 (80.0-98.0) fL MCH 29.1 (27.0-33.0) pg MCHC 34.9 (31.0-36.0) g/dl RDW 14.6 (11.0-16.0) % Plt Count 193 (160-400) X10*3/uL MPV 10.7 (9.4-12.4) fL Immature Gran % (Auto) 0.5 H (0.0-0.4) % Neut % (Auto) 80.3 H (45-73) % Lymph % (Auto) 15.6 L (20-40) % Coleman % (Auto) 2.7 (2-11) % Eos % (Auto) 0.3 (0-4) % Baso % (Auto) 0.6 (0-2) % Lymph # (Auto) 1.0 L (1.2-4.9) X10*3/uL Coleman # (Auto) 0.2 (0.1-1.2) X10*3/uL Eos # (Auto) 0.0 (0.0-0.4) X10*3/uL Baso # (Auto) 0.0 (0.0-0.2) X10*3/uL Abs Immat Gran (auto) 0.03 (0.00-0.03) X10*3/uL Absolute Neuts (auto) 5.1 (2.0-8.3) x10*3/uL Absolute Nucleated RBC 0.000 (0.0-0.012) X10*3/uL Nucleated RBC % (auto) 0.0 (0.0-0.2) /100WBC Sodium 141 (135-145) mmol/L Potassium 3.5 (3.3-5.1) mmol/L Chloride 107 (96-108) mmol/L Carbon Dioxide 27 (22-29) mmol/L Anion Gap 11 L (12-20) BUN 15 (9-16) mg/dL Creatinine 0.98 (0.5-1.4) mg/dL Estim Creat Clear Calc 82.3 Estimated GFR > 60 Random Glucose 103 (60-115) mg/dL Calcium 9.8 (8.4-10.2) mg/dL Total Bilirubin 0.6 (0.0-1.0) mg/dL AST 24 (5-37) U/L ALT 24 (0-40) U/L Alkaline Phosphatase 86 (39-117) U/L Troponin I High Sens 23.6 D 26.0 (<3.5-35.0) ng/L Total Protein 6.9 (6.5-8.0) g/dL Albumin 4.4 (3.5-5.0) g/dL TSH (0.32-4.0) uIU/mL Urine Color Yellow Urine Appearance Clear Urine pH 5.5 (5.0-9.0) Ur Specific [place] 1.020 (1.005-1.025) Urine Protein Trace (Neg-Trace) mg/dL Urine Glucose (UA) Negative (Negative) mg/dL Urine Ketones Negative (Negative) mg/dL Urine Blood Negative (Negative) Urine Nitrite Negative (Negative) Ur Leukocyte Esterase Trace H (Negative) Urine RBC 0-2 (0-2) /HPF Urine WBC 0-5 (0-5) /HPF Ur Squamous Epith Cells 0-2 (0-2) /HPF Urine Bacteria None Seen (None Seen) Hyaline Casts 0-2 (0-2) /LPF Urine Opiates Screen Not Detected (Not Detect) Ur Buprenorphine Scrn Not Detected (Not Detect) ng/mL Ur Oxycodone Screen Not Detected (Not Detect) ng/mL Urine Methadone Screen Not Detected (Not Detect) ng/mL Urine Fentanyl Screen Not Detected (Not Detect) Ur Barbiturates Screen Not Detected (Not Detect) Ur Phencyclidine Scrn Not Detected (Not Detect) Ur Amphetamines Screen Not Detected (Not Detect) U Benzodiazepines Scrn Not Detected (Not Detect) Urine Cocaine Screen POSITIVE H (Not Detect) U Marijuana (THC) Screen POSITIVE H (Not Detect) Ethyl Alcohol < 10 mg/dL Influenza Type A (PCR) NEGATIVE (Negative) Influenza Type B (PCR) NEGATIVE (Negative) RSV RNA Qual (PCR) NEGATIVE (Negative) SARS-CoV-2 RNA (RT-PCR) NEGATIVE (Negative) 02/28/24 Range/Units 13:14 WBC (4.8-10.8) X10*3/uL RBC (4.60-5.80) X10*6/uL Hgb (14.0-18.0) g/dl Hct (42.0-52.0) % MCV (80.0-98.0) fL MCH (27.0-33.0) pg MCHC (31.0-36.0) g/dl RDW (11.0-16.0) % Plt Count (160-400) X10*3/uL MPV (9.4-12.4) fL Immature Gran % (Auto) (0.0-0.4) % Neut % (Auto) (45-73) % Lymph % (Auto) (20-40) % Coleman % (Auto) (2-11) % Eos % (Auto) (0-4) % Baso % (Auto) (0-2) % Lymph # (Auto) (1.2-4.9) X10*3/uL [place] # (Auto) (0.1-1.2) X10*3/uL Eos # (Auto) (0.0-0.4) X10*3/uL Baso # (Auto) (0.0-0.2) X10*3/uL Abs Immat Gran (auto) (0.00-0.03) X10*3/uL Absolute Neuts (auto) (2.0-8.3) x10*3/uL Absolute Nucleated RBC (0.0-0.012) X10*3/uL Nucleated RBC % (auto) (0.0-0.2) /100WBC Sodium (135-145) mmol/L Potassium (3.3-5.1) mmol/L Chloride (96-108) mmol/L Carbon Dioxide (22-29) mmol/L Anion Gap (12-20) BUN (9-16) mg/dL Creatinine (0.5-1.4) mg/dL Estim Creat Clear Calc Estimated GFR Random Glucose (60-115) mg/dL Calcium (8.4-10.2) mg/dL Total Bilirubin (0.0-1.0) mg/dL AST (5-37) U/L ALT (0-40) U/L Alkaline Phosphatase (39-117) U/L Troponin I High Sens (<3.5-35.0) ng/L Total Protein (6.5-8.0) g/dL Albumin (3.5-5.0) g/dL TSH 0.44 (0.32-4.0) uIU/mL Urine Color Urine Appearance Urine pH (5.0-9.0) Ur Specific [place] (1.005-1.025) Urine Protein (Neg-Trace) mg/dL Urine Glucose (UA) (Negative) mg/dL Urine Ketones (Negative) mg/dL Urine Blood (Negative) Urine Nitrite (Negative) Ur Leukocyte Esterase (Negative) Urine RBC (0-2) /HPF Urine WBC (0-5) /HPF Ur Squamous Epith Cells (0-2) /HPF Urine Bacteria (None Seen) Hyaline Casts (0-2) /LPF Urine Opiates Screen (Not Detect) Ur Buprenorphine Scrn (Not Detect) ng/mL Ur Oxycodone Screen (Not Detect) ng/mL Urine Methadone Screen (Not Detect) ng/mL Urine Fentanyl Screen (Not Detect) Ur Barbiturates Screen (Not Detect) Ur Phencyclidine Scrn (Not Detect) Ur Amphetamines Screen (Not Detect) U Benzodiazepines Scrn (Not Detect) Urine Cocaine Screen (Not Detect) U Marijuana (THC) Screen (Not Detect) Ethyl Alcohol mg/dL Influenza Type A (PCR) (Negative) Influenza Type B (PCR) (Negative) RSV RNA Qual (PCR) (Negative) SARS-CoV-2 RNA (RT-PCR) (Negative) Discharge Plan Discharge Clinical Impression: PTSD (post-traumatic stress disorder), MDD (major depressive disorder), recurrent episode, moderate, Polysubstance abuse Patient Disposition: Still a Patient Prescriptions: No Action divalproex 250 mg Tablet Extended Release 24 Hr 250 mg PO BEDTIME Qty: 0 0RF quetiapine 25 mg Tablet 25 mg PO BID@0900,1500 lansoprazole 15 mg Capsule,Delayed Release(Dr/Ec) 15 mg PO DAILY@0630 prazosin 2 mg Capsule 2 mg PO BEDTIME Vivitrol 380 mg Suspension,Extended Rel Recon 380 mg IM Q4W quetiapine 25 mg Tablet 50 mg PO BEDTIME atorvastatin 20 mg Tablet 10 mg PO BEDTIME ondansetron 4 mg tablet,disintegrating 4 mg PO Q8H PRN (Reason: nausea and vomiting) Qty: 10 0RF sildenafil 50 mg Tablet 50 mg PO DAILY PRN (Reason: Erectile Dysfunction) Rx Instructions: administer 30 minutes to 4 hours before activity cetirizine 10 mg Tablet 10 mg PO DAILY calcium polycarbophil 625 mg Tablet 625 mg PO BID Print Language: Samoan
--- NOTE | 2024-02-28 10:06 | PC.NURSE ---
repeat trop obtained/sent to lab. pt seen by adult education managerTabitha at this time/aware of plan of care moving forward. pt continues to rest in bed w/ lights dimmed in no apparent distress. no sob/wob noted. respirations even/unlabored. call stringer placed within reach.
[2024-02-28 10:29] LABS: Amphetamine Screen Urine Not Detected (Not Detect); Barbiturates, Urine Not Detected (Not Detect); Benzodiazepines Screen Urine Not Detected (Not Detect); Buprenorphine Scr Not Detected (Not Detect); Cannabinoid Screen Urine POSITIVE (Not Detect); Cocaine Screen Urine POSITIVE (Not Detect); Fentanyl, urine Not Detected (Not Detect); Methadone Screen, Urine Not Detected (Not Detect); Opiate Screen Urine Not Detected (Not Detect); Oxycodone Screen Urine Not Detected (Not Detect); Phencyclidine Screen Urine Not Detected (Not Detect)
[2024-02-28] MEDS: Acetaminophen 325 MG TABLET 975 MG PO (10:29)
--- NOTE | 2024-02-28 11:14 | PC.NURSE ---
updated COWS = 10. report given to BHARATH Casanova in the pod at this time. pt currently speaking w/ care team. will notify security that pt needs to be changed over in [facility] attire/having belongings obtained before being transferred to the pod.
[2024-02-28 11:39] LABS: Appearance Urine Clear; Color Urine Yellow; Glucose Urine UA Negative (Negative); Leukocyte Esterase Urine Trace (Negative); Nitrite Urine Negative (Negative); PH 5.5 (5.0-9.0); UMIC TRIGGER UA YES; Urine Blood Negative (Negative); Urine Ketones Negative (Negative); Urine Protein Trace mg/dL (Neg-Trace)
[2024-02-28 11:41] LABS: Bacteria Urine None Seen (None Seen); Hyaline Casts Urine 0-2 /LPF (0-2); RBC Urine 0-2 /HPF (0-2); Squamous Epithelial Cell Urine 0-2 /HPF (0-2); WBC Urine 0-5 /HPF (0-5)
[2024-02-28 11:51] LABS: Ethanol < 10 mg/dL
--- NOTE | 2024-02-28 12:42 | MHC.RECOVRN ---
Met with pt this morning after consult received for ATS. Pt laying in bed, awake, alert, engages in conversation, tearful. 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 When he uses, pt reports using $20-$30. Reports he is able to go 4-7 days at a time without using. 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 Pt reports he had been going to a weekly PTSD group which helped with recovery. Pt reports he currently lives at [address] [place] but does not feel safe, reports he feels as though someone is going to break in and kill him. Pt reports he feels this way even when he is not using cocaine. Pt reports he has a hx of PTSD and anxiety. Reports visual hallucinations also when not using substances. Pt reports feelings of depression, reports he has not been eating or bathing. Pt reports desire for mental health treatment in addition to substance use. Discussed ATS, pt voices desire for dual diagnosis facility. Pt denies questions or concerns for t/w. Discussed with CARE Team and provider.
--- NOTE | 2024-02-28 13:05 | PC.NURSE ---
RE: med rec This RN completed medication rec by calling [facility] in [place] and speaking with Kvng who provided all medications to this RN
--- NOTE | 2024-02-28 13:52 | MHC.CARE ---
Patient evaluated by the CARE Team, disposition determined to be inpatient dual diagnosis bedsearch. ED provider, Dr. Beauchamp updated
[2024-02-28 13:55] LABS: Thyroid Stimulating Hormone 0.44 uIU/mL (0.32-4.0)
[2024-02-28] MEDS: QUEtiapine Fumarate 25 MG TABLET PO (15:31)
--- NOTE | 2024-02-28 19:34 | MHC.CARE ---
Pt has been accepted to [facility], Dr. Herron accepting. Transport will be here for pickup at 8pm
== END 2024-02-28 20:01 ==
PROVIDERS: Emergency Provider Emergency Medicine; Referring Provider Emergency Medicine
DX: F43.10 Post-traumatic stress disorder, unspecified (principal); F33.9 Major depressive disorder, recurrent, unspecified; F19.10 Other psychoactive substance abuse, uncomplicated; R07.9 Chest pain, unspecified; Z79.899 Other long term (current) drug therapy; Z03.818 Encounter for observation for suspected exposure to other biological agents ruled out
CPT/HCPCS: 0241U; 36415; 71045; 80053; 80307; 81001; 84443; 84484; 85025; 93005; 99285; S9485

== ENCOUNTER → 2024-02-28 04:24 | Outpatient (BNV) | payer OTHER, SELFPAY | PROVIDERS: Emergency Provider Emergency Medicine; Visit Provider Internal Medicine Cardiovascular Disease | DX: R94.31 Abnormal electrocardiogram [ECG] [EKG] (principal) | CPT/HCPCS: 93010 ==